=== PATIENT | male | born 1940 | race Caucasian/White ===

== ENCOUNTER → 2017-04-22 08:35 | Outpatient (CLI) | payer MEDICARE, SELFPAY ==
[2017-04-22 10:57] LABS: ALB/GLOB Ratio 0.9 RATIO (0.9-2.4); AST(SGOT) 58 U/L (15-37); Alanine Aminotransfer ALT/SGPT 67 U/L (16-61); Albumin, Serum 3.7 g/dL (3.2-5.0); Alkaline Phosphatase 90 U/L (45-117); Anion Gap 10 (5-15); BUN 20 mg/dL (7-18); BUN/Creat Ratio 14.6 RATIO (10-20); Calcium,Total 8.7 mg/dL (8.5-10.1); Chloride 101 mmol/L (98-107); Cholesterol 187 mg/dL (200); Creatinine, Serum 1.37 mg/dL (0.70-1.30); EST Glomerular Filtration Rate 54 mL/min (>60); Est Glom Filt Rate - Afr Amer 65 mL/min (>60); GGTP 158 U/L (15-85); Globulin 3.9 g/dL (2.2-4.2); Glucose 177 mg/dL (74-106); High Density Lipoprotein 32 mg/dL; Potassium 4.2 mmol/L (3.5-5.1); Protein, Total 7.6 g/dL (6.4-8.2); Sodium Level 136 mmol/L (136-145); Triglycerides 452 mg/dL
== END ==
PROVIDERS: Family Provider Family Medicine; PCP Family Medicine; Visit Provider Family Medicine
DX: E11.65 Type 2 diabetes mellitus with hyperglycemia (principal); R74.0 Nonspecific elevation of levels of transaminase and lactic acid dehydrogenase [LDH]
CPT/HCPCS: 36415; 80053; 80061; 82977

== ENCOUNTER → 2017-10-30 08:20 | Outpatient (CLI) | payer MEDICARE, SELFPAY ==
[2017-10-30 10:49] LABS: AST(SGOT) 86 U/L (15-37); Alanine Aminotransfer ALT/SGPT 89 U/L (16-61); Alkaline Phosphatase 92 U/L (45-117); Anion Gap 11 (5-15); BUN 16 mg/dL (7-18); BUN/Creat Ratio 11.8 RATIO (10-20); Chloride 104 mmol/L (98-107); Cholesterol 203 mg/dL (200); Creatinine, Serum 1.36 mg/dL (0.70-1.30); EST Glomerular Filtration Rate 54 mL/min (>60); Est Glom Filt Rate - Afr Amer 66 mL/min (>60); Globulin 4.2 g/dL (2.2-4.2); Glucose 122 mg/dL (74-106); High Density Lipoprotein 35 mg/dL; Potassium 4.2 mmol/L (3.5-5.1); Protein, Total 8.2 g/dL (6.4-8.2); Sodium Level 141 mmol/L (136-145); Thyroid Stim Hormone (TSH) 1.79 uIU/mL (0.358-3.74); Triglycerides 482 mg/dL
== END ==
PROVIDERS: Family Provider Family Medicine; PCP Family Medicine; Visit Provider Family Medicine
DX: E11.65 Type 2 diabetes mellitus with hyperglycemia (principal)
CPT/HCPCS: 36415; 80053; 80061; 84443

== ENCOUNTER → 2018-01-28 07:31 | Outpatient (CLI) | payer MEDICARE, SELFPAY ==
[2018-01-28 11:34] LABS: AST(SGOT) 85 U/L (15-37); Alanine Aminotransfer ALT/SGPT 90 U/L (16-61); Albumin, Serum 3.8 g/dL (3.2-5.0); Alkaline Phosphatase 92 U/L (45-117); Anion Gap 7 (5-15); BUN 23 mg/dL (7-18); BUN/Creat Ratio 17.3 RATIO (10-20); Calcium,Total 8.5 mg/dL (8.5-10.1); Chloride 105 mmol/L (98-107); Cholesterol 113 mg/dL (200); Creatinine, Serum 1.33 mg/dL (0.70-1.30); EST Glomerular Filtration Rate 56 mL/min (>60); Est Glom Filt Rate - Afr Amer 67 mL/min (>60); Globulin 3.8 g/dL (2.2-4.2); Glucose 138 mg/dL (74-106); High Density Lipoprotein 32 mg/dL; Potassium 4.3 mmol/L (3.5-5.1); Protein, Total 7.6 g/dL (6.4-8.2); Sodium Level 140 mmol/L (136-145); Triglycerides 401 mg/dL
== END ==
PROVIDERS: Family Provider Family Medicine; PCP Family Medicine; Referring Provider Family Medicine; Visit Provider Family Medicine
DX: E78.5 Hyperlipidemia, unspecified (principal); R74.0 Nonspecific elevation of levels of transaminase and lactic acid dehydrogenase [LDH]
CPT/HCPCS: 36415; 80053; 80061

== ENCOUNTER → 2018-08-07 07:14 | Outpatient (CLI) | payer MEDICARE, SELFPAY ==
[2018-08-07 10:18] LABS: AST(SGOT) 84 U/L (15-37); Alanine Aminotransfer ALT/SGPT 101 U/L (16-61); Albumin, Serum 3.8 g/dL (3.2-5.0); Alkaline Phosphatase 98 U/L (45-117); Anion Gap 5 (5-15); BUN 21 mg/dL (7-18); BUN/Creat Ratio 14.7 RATIO (10-20); Calcium,Total 8.5 mg/dL (8.5-10.1); Chloride 107 mmol/L (98-107); Cholesterol 121 mg/dL (200); Creatinine, Serum 1.43 mg/dL (0.70-1.30); EST Glomerular Filtration Rate 51 mL/min (>60); Est Glom Filt Rate - Afr Amer 62 mL/min (>60); Globulin 3.9 g/dL (2.2-4.2); Glucose 113 mg/dL (74-106); High Density Lipoprotein 34 mg/dL; Potassium 3.8 mmol/L (3.5-5.1); Protein, Total 7.7 g/dL (6.4-8.2); Sodium Level 138 mmol/L (136-145); Triglycerides 381 mg/dL; Very Low Density Lipoprotein 76 mg/dL (5-40)
== END ==
PROVIDERS: Family Provider Family Medicine; PCP Family Medicine; Referring Provider Family Medicine; Visit Provider Family Medicine
DX: E11.65 Type 2 diabetes mellitus with hyperglycemia (principal)
CPT/HCPCS: 36415; 80053; 80061

== ENCOUNTER → 2018-11-27 14:26 | Outpatient (CLI) | payer MEDICARE, SELFPAY ==
[2018-11-27 16:39] LABS: ALB/GLOB Ratio 1.1 RATIO (0.9-2.4); AST(SGOT) 92 U/L (15-37); Alanine Aminotransfer ALT/SGPT 88 U/L (16-61); Alkaline Phosphatase 86 U/L (45-117); Anion Gap 6 (5-15); BUN 20 mg/dL (7-18); BUN/Creat Ratio 14.6 RATIO (10-20); Calcium,Total 8.8 mg/dL (8.5-10.1); Chloride 108 mmol/L (98-107); Creatinine, Serum 1.37 mg/dL (0.70-1.30); EST Glomerular Filtration Rate 54 mL/min (>60); Est Glom Filt Rate - Afr Amer 65 mL/min (>60); Globulin 3.6 g/dL (2.2-4.2); Glucose 83 mg/dL (74-106); Potassium 4.3 mmol/L (3.5-5.1); Protein, Total 7.6 g/dL (6.4-8.2); Sodium Level 141 mmol/L (136-145)
== END ==
PROVIDERS: Family Provider Family Medicine; PCP Family Medicine; Referring Provider Family Medicine; Visit Provider Family Medicine
DX: E11.65 Type 2 diabetes mellitus with hyperglycemia (principal)
CPT/HCPCS: 36415; 80053

== ENCOUNTER → 2019-03-16 08:42 | Outpatient (CLI) | payer MEDICARE, SELFPAY ==
--- NOTE | 2019-03-16 08:46 | US_ITS ---
STUDY: ABDOMINAL ULTRASOUND - RIGHT UPPER QUADRANT REASON FOR VISIT: Male, 79 years old ABN LABS TECHNIQUE: Ultrasound evaluation of the right upper quadrant was performed with real-time and static adrian-scale imaging. TECHNICAL QUALITY: Limited. Examination limited by bowel gas. COMPARISON: None. FINDINGS: Liver: The liver is mildly enlarged and measures 19.2 cm. There is increased echogenicity consistent with fatty infiltration. The bile ducts are within normal limits. There is hepatic color flow. The direction of portal flow is hepatopetal. There is no demonstrated mass lesion. Gallbladder: Normal distended gallbladder. The gallbladder wall measures 2.6 mm. There is a negative sonographic Finney''s sign. There is no pericholecystic fluid. There are no gallstones. Common Bile Duct (C.B.D.): The common bile duct measures 3.7 mm. Pancreas: There is nonvisualization of the pancreas due to overlying bowel gas. Right Kidney: Normal size of the right kidney. The right kidney measures 11 cm x 4.6 cm x 6.6 cm. Normal renal cortex. The right cortex measures 1.9 cm. There is no demonstrated renal mass or cyst. There is no right hydronephrosis. US/Abdomen Limited IMPRESSION: Hepatomegaly and fatty infiltration of the liver. Electronically Signed: Cristiano Calvillo, at 14:24 EST , Service support ,
== END ==
PROVIDERS: Family Provider Family Medicine; PCP Family Medicine; Referring Provider Family Medicine; Visit Provider Family Medicine
DX: R74.0 Nonspecific elevation of levels of transaminase and lactic acid dehydrogenase [LDH] (principal)
CPT/HCPCS: 76705

== ENCOUNTER → 2020-01-07 09:58 | Outpatient (CLI) | payer MEDICARE, SELFPAY ==
[2020-01-07 13:13] LABS: ALB/GLOB Ratio 0.8 RATIO (0.9-2.4); AST(SGOT) 121 U/L (15-37); Alanine Aminotransfer ALT/SGPT 102 U/L (16-61); Albumin, Serum 3.6 g/dL (3.2-5.0); Alkaline Phosphatase 115 U/L (45-117); Anion Gap 7 (5-15); BUN 26 mg/dL (7-18); BUN/Creat Ratio 16.8 RATIO (10-20); Calcium,Total 8.5 mg/dL (8.5-10.1); Chloride 108 mmol/L (98-107); Creatinine, Serum 1.55 mg/dL (0.70-1.30); EST Glomerular Filtration Rate 46 mL/min (>60); Est Glom Filt Rate - Afr Amer 56 mL/min (>60); Globulin 4.3 g/dL (2.2-4.2); Glucose 154 mg/dL (74-106); Potassium 3.9 mmol/L (3.5-5.1); Protein, Total 7.9 g/dL (6.4-8.2); Sodium Level 138 mmol/L (136-145); Thyroid Stim Hormone (TSH) 2.08 uIU/mL (0.358-3.74)
== END ==
PROVIDERS: PCP Family Medicine; Referring Provider Family Medicine; Visit Provider Family Medicine
DX: E11.65 Type 2 diabetes mellitus with hyperglycemia (principal)
CPT/HCPCS: 36415; 80053; 84443

== ENCOUNTER → 2020-04-21 09:22 | Outpatient (CLI) | payer MEDICARE, SELFPAY ==
[2020-04-21 10:45] LABS: ALB/GLOB Ratio 0.9 RATIO (0.9-2.4); AST(SGOT) 114 U/L (15-37); Alanine Aminotransfer ALT/SGPT 91 U/L (16-61); Albumin, Serum 3.8 g/dL (3.2-5.0); Alkaline Phosphatase 113 U/L (45-117); Anion Gap 6 (5-15); BUN 22 mg/dL (7-18); BUN/Creat Ratio 13.1 RATIO (10-20); Calcium,Total 8.8 mg/dL (8.5-10.1); Chloride 104 mmol/L (98-107); Creatinine, Serum 1.68 mg/dL (0.70-1.30); EST Glomerular Filtration Rate 42 mL/min (>60); Est Glom Filt Rate - Afr Amer 51 mL/min (>60); Globulin 4.4 g/dL (2.2-4.2); Glucose 221 mg/dL (74-106); Potassium 4.7 mmol/L (3.5-5.1); Protein, Total 8.2 g/dL (6.4-8.2); Sodium Level 136 mmol/L (136-145)
== END ==
PROVIDERS: PCP Family Medicine; Referring Provider Family Medicine; Visit Provider Family Medicine
DX: E11.65 Type 2 diabetes mellitus with hyperglycemia (principal)
CPT/HCPCS: 36415; 80053

== ENCOUNTER 2020-08-13 06:57 | Inpatient (IN) | payer MEDICARE, SELFPAY ==
[2020-08-13] VITALS (11 sets, daily range): BP systolic 130–151; BP diastolic 52–67; PULSE 61–91; RESP 14–18; TEMP 37.1–37.7; O2SAT 94–96; BMI 28.0; BMI 27.5; BMI 27.4
--- NOTE | 2020-08-13 07:17 | RAD_ITS ---
STUDY: X-RAY CHEST REASON FOR EXAM: Male, 80 years old. cough TECHNIQUE: Single AP portable view of the chest. COMPARISON: None. FINDINGS: Poor inspiration with some bibasilar atelectasis. Elevated right hemidiaphragm. Normal size heart. Normal mediastinum and [place]. Normal visualized pulmonary arteries. Normal visualized aortic arch and descending thoracic aorta. Normal visualized thoracic spine. Normal visualized ribs, clavicles, and shoulders. There is no demonstrated abnormality of the visualized soft tissue structures of the upper abdomen. RAD/Chest 1 View (Portable) IMPRESSION: Poor inspiration with some bibasilar atelectasis. Electronically Signed: Danny Sorensen MD at 8:19 EDT Tel , Service support ,
--- NOTE | 2020-08-13 07:18 | EKG12_ITS ---
Test Reason : SOB Blood Pressure : / mmHG Vent. Rate : 081 BPM Atrial Rate : 081 BPM P-R Int : 200 ms QRS Dur : 100 ms QT Int : 382 ms P-R-T Axes : 011 -38 035 degrees QTc Int : 443 ms Normal sinus rhythm Left axis deviation Inferior infarct , age undetermined Anterior infarct , age undetermined Abnormal ECG Confirmed by MICHAEL LECHUGA, ANNABELLE ([id number]), design editor FAVIAN WAGNER ([id number]) on 08/15/2020 11:10:24 A M Referred By: CHUY Confirmed By:CARLITOS RODRIGUEZ MD
[2020-08-13 07:25] LABS: Absolute Lymphocyte Count 0.72 X10^3/uL (0.83-4.51); Absolute Neutrophil Count 4.1 X10^3/uL (2.0-7.7); Basophil# 0.02 X10^3/uL; Basophil% 0.4 % (0-1); Hematocrit 41.4 % (40-54); Hemoglobin 14.1 g/dL (13.0-16.5); Lymphocyte # 0.72 X10^3/ul (0.83-4.51); Lymphocyte % 13.4 % (19-41); Mean Corp Hgb Conc 34.1 g/dL (32-36); Mean Corpuscular Hgb 30.4 pg (27.0-32.0); Mean Corpuscular Volume 89.2 fL (80-94); Mean Platelet Vol. 11.3 fl (6.2-12.0); Monocyte# 0.52 X10^3/uL; Monocyte% 9.7 % (0-10); NRBC Flagged by Analyzer 0 % (0-5); Neutrophil # 4.05 X10^3/uL (2.7-7.7); Neutrophil % 75.6 % (47-70); POSITIVE COUNT YES; Platelet Count 69 K/mm3 (150-450); RBC Distribution Width CV 12.5 % (11.6-14.6); RBC Distribution Width SD 41.1 fl (35.1-43.9); Red Blood Count 4.64 M/mm3 (4.6-6.2); White Blood Count 5.4 K/mm3 (4.4-11.0)
[2020-08-13] MEDS: 0.9% Normal Saline 1,000 ML 150 ML IV (07:28)
--- NOTE | 2020-08-13 07:30 | EDS_ITS ---
HPI History of Present Illness Chief Complaint: General Illness Narrative Narrative: 3 to 4 days of cough fever body aches Patient reports persistently harsh cough trouble eating and drinking, no coronavirus exposures no vaccination no cardiopulmonary disease hypertension diabetes generally well controlled normal urinary bowel habits [facility] Medical History (Updated 08/13/20 @ 07:02 by Luisana Lozoya RN) Congestive heart failure (CHF) Diabetes Hypertension Home Medications aspirin 81 mg PO DAILY 08/13/20 [History Last Taken Unknown] dapagliflozin [Farxiga] 5 mg PO DAILY 08/13/20 [History Last Taken Unknown] hydrochlorothiazide 12.5 mg PO DAILY 08/13/20 [History Last Taken Unknown] losartan 100 mg PO DAILY 08/13/20 [History Last Taken Unknown] metoprolol tartrate 50 mg PO BID 08/13/20 [History Last Taken Unknown] pitavastatin calcium [Livalo] 2 mg PO DAILY 08/13/20 [History Last Taken Unknown] saxagliptin-metformin [Kombiglyze XR] 1 tab PO DAILY 08/13/20 [History Last Taken Unknown] Allergy/AdvReac Type Severity Reaction Status Date / Time No Known Allergies Allergy Verified 08/13/20 07:00 Social History Smoking Status: Never smoker ROS ROS ED ROS Narrative Fever cough shortness of breath generalized weakness Constitutional Constitutional ED: Reports chills, fever(s), subjective, sweats and other; Denies weight loss Eyes Eyes: Denies blurry vision or change in vision ENT ENT ED: Denies ear pain Cardiovascular Cardiovascular: Denies chest pain or palpitations Respiratory/Chest Respiratory/Chest: Reports cough and dyspnea Gastrointestinal Gastrointestinal: Denies abdominal pain, nausea or vomiting Genitourinary Genitourinary ED: Denies dysuria or hematuria Musculoskeletal Musculoskeletal: Denies arthralgias or myalgias Integumentary Reports rash; Denies abscess Neurologic Neurologic: Denies weakness Psychiatric Psychiatric: Denies anxiety or depression Endocrine Endocrinology: Denies polydipsia or polyuria Allergic/Immunologic Allergic/Immunologic ED: Denies urticaria EXAM Physical Exam Narrative Exam Narrative: Patient is awake and alert his pulse ox is 90% on room air HEENT exam is dry mucous membranes neck supple lungs rhonchi in all areas good excursion abdomen soft nontender awake alert moving all four extremities see below Const Vital Signs: 08/13/20 06:58 08/13/20 07:45 Temperature 99.5 F H Temperature Source Oral Pulse Rate 87 74 Respiratory Rate 14 16 Blood Pressure 150/67 H 133/61 H Blood Pressure Mean 94 85 Pulse Ox 94 94 Oxygen Delivery Method Room Air Room Air Positive well developed General Appearance ED: well developed HEENT Reports normocephalic Negative for trauma Eyes EOMs intact bilaterally Neck supple Chest Wall inspection of chest normal Resp normal respiratory effort Cardio regular rate GI non-tender and non-distended Back/Spine Back/Spine Narrative: unremarkable Extremity normal to inspection Neuro oriented x3 and CN's II-XII intact bilaterally Sensorium / Orientation: alert Psych mental status grossly normal Skin no rashes or lesions noted MDM MDM MDM Narrative Medical decision making narrative: Given all the above ED evaluation screening labs x-ray coronavirus screen Coronavirus screen positive, creatinine is elevated from baseline 1.3-1.8, IV fluids given he is on 2 L of oxygen his pulse ox is now 95% he is in no cardiopulmonary distress, other screening labs are generally unremarkable 1 view chest x-ray to my review shows potential infiltrate right upper area, radiology feels the patient has more bibasilar atelectasis see those reports, EKG shows a sinus rhythm rate 81 nothing acute poor R wave progression lack of R waves in the anterior leads no old EKG for comparison, again patient has no history of NH PE or DVT given all the above we spoke with the hospitalist he'll be done admit him for further management discussed with the patient he understands Admit stable Final impression coronavirus 19 infection hypoxemia dehydration [facility] Lab Data Labs: Laboratory Results - last 24 hr 08/13/20 08/13/20 08/13/20 07:00 07:00 07:00 WBC 5.4 RBC 4.64 Hgb 14.1 Hct 41.4 MCV 89.2 MCH 30.4 MCHC 34.1 RDW Std Deviation 41.1 RDW Coeff of Maite 12.5 Plt Count 69 L MPV 11.3 Immature Gran % (Auto) 0.900 Neut % (Auto) 75.6 H Lymph % (Auto) 13.4 L [place] % (Auto) 9.7 Eos % (Auto) 0.0 Baso % (Auto) 0.4 Absolute Neuts (auto) 4.1 Absolute Lymphs (auto) 0.72 L Nucleated RBC % 0 Differential Comment SCANNED Platelet Estimate MOD DEC Sodium 132 L Potassium 4.4 Chloride 101 Carbon Dioxide 23.0 Anion Gap 8 BUN 31 H Creatinine 1.84 H Estim Creat Clear Calc 34.16 Est GFR (MDRD) Af Amer 46 L Est GFR (MDRD) Non-Af 38 L BUN/Creatinine Ratio 16.8 Glucose 221 H Calcium 8.3 L Troponin I < 0.015 B-Natriuretic Peptide 29.1 Radiography Diagnostic Testing: Radiology Impression Chest X-Ray 08/13/20 07:17 IMPRESSION: Poor inspiration with some bibasilar atelectasis. Electronically Signed: Danny Sorensen MD at 8:19 EDT Tel , Service support , Discharge Plan Triage Chief Complaint: General Illness ED Provider: Maggie Barraza Dx/Rx/DC Orders Prescriptions: No Action metoprolol tartrate 50 mg tablet 50 mg PO BID RF: 0 Kombiglyze XR 5-1,000 mg tablet, ER multiphase 24 hr 1 tab PO DAILY RF: 0 Farxiga 5 mg tablet 5 mg PO DAILY RF: 0 losartan 100 mg tablet 100 mg PO DAILY RF: 0 hydrochlorothiazide 12.5 mg tablet 12.5 mg PO DAILY RF: 0 Livalo 2 mg tablet 2 mg PO DAILY RF: 0 aspirin 81 mg Tablet 81 mg PO DAILY RF: 0 Primary Care Provider: Matthew Conroy
[2020-08-13 07:36] LABS: Anion Gap 8 (5-15); BUN 31 mg/dL (7-18); BUN/Creat Ratio 16.8 RATIO (10-20); Calcium,Total 8.3 mg/dL (8.5-10.1); Chloride 101 mmol/L (98-107); Creatinine, Serum 1.84 mg/dL (0.70-1.30); EST Glomerular Filtration Rate 38 mL/min (>60); Est Glom Filt Rate - Afr Amer 46 mL/min (>60); Estimated Creatinine Clearance 34.16 ml/min; Glucose 221 mg/dL (74-106); Potassium 4.4 mmol/L (3.5-5.1); Sodium Level 132 mmol/L (136-145)
[2020-08-13 07:39] LABS: Differential Indicated SCAN CRITERIA MET
[2020-08-13 08:03] LABS: BNP,B-Type NATRIURETIC PEPTIDE 29.1 pg/mL (0-100)
[2020-08-13 08:10] LABS: Differential Comment SCANNED; Platelet Estimate MOD DEC (ADEQ)
--- NOTE | 2020-08-13 08:39 | PCM.HP.STD ---
HPI - General General Date of Admission: 08/13/20 HPI Narrative YOLANDA MEDRANO, is a 80 M with history of hypertension and diabetes mellitus came to ER with fever body aches and mild abdominal pain. Patient states his symptom complex started about a week ago with generalized weakness, tiredness body aches and pain. Then he started having diarrhea about 5 times loose, black in color. He denies abdominal pain to me. He had colonoscopy about a year ago and was negative as per the patient. Patient also has fever, chills for last 3 days. Mild cough predominantly dry and shortness of breath on exertion for 3 to 4 days. In ED, temperature 99.5, pulse ox 94% on room air. Heart rate and blood pressure controlled. Chest x-ray individually reviewed and shows bibasilar atelectasis with some groundglass appearance in the lateral field of both lungs although not reported. EKG sinus rhythm with LAD at 81 bpm. QTc 443 ms. Previous EKG in March 2008 normal sinus rhythm at 64 beats respiratory. Abnormal labs reviewed. Although not initially ordered By ER physician, lactic acidosis came 2.5, D-dimer 0.95, procalcitonin 0.27. Inflammatory markers LDH, fibrinogen and CRP elevated. BUN/creatinine elevated. [facility] Medical History (Updated 08/13/20 @ 11:[address] Rodrigo Reilly MD) CKD (chronic kidney disease) stage 3, GFR 30-59 ml/min Congestive heart failure (CHF) Diabetes Hypertension Home Medications aspirin 81 mg PO DAILY 08/13/20 [History Last Taken Unknown] dapagliflozin [Farxiga] 5 mg PO DAILY 08/13/20 [History Last Taken Unknown] hydrochlorothiazide 12.5 mg PO DAILY 08/13/20 [History Last Taken Unknown] insulin aspart U-100 50 unit SUBCUT TIDCM 08/13/20 [History Last Taken 08/12/20] insulin detemir U-100 [Levemir Flexpen] 65 unit SUBCUT BID 08/13/20 [History Last Taken 08/12/20] losartan 100 mg PO DAILY 08/13/20 [History Last Taken Unknown] metoprolol tartrate 50 mg PO BID 08/13/20 [History Last Taken Unknown] pitavastatin calcium [Livalo] 2 mg PO DAILY 08/13/20 [History Last Taken Unknown] saxagliptin-metformin [Kombiglyze XR] 1 tab PO DAILY 08/13/20 [History Last Taken Unknown] Allergy/AdvReac Type Severity Reaction Status Date / Time No Known Allergies Allergy Verified 08/13/20 07:00 Family History (Updated 08/13/20 @ 10:[address] Rodrigo Reilly MD) Brother Colon cancer Social History Smoking Status: Never smoker ROS ROS Narrative Constitutional: Reports fatigue and weakness. Generalized tiredness. Feels thirsty. HEENT: Reports systems reviewed and no addt'l complaints, except as documented Respiratory/Chest: Denies chest pain. shortness of breath with exertion and at rest Gastrointestinal: No abdominal pain. Diarrhea as mentioned in HPI. Denies coffee ground emesis, hematemesis or vomiting Genitourinary: Decreased in urine output. Yellow urine. Denies burning urination Musculoskeletal: Reports joint pain and limited range of motion Neurologic: Denies seizure-like activity skin: No ulcer. No rash Endocrinology: Diabetes mellitus type 2. Reports systems reviewed and no addt'l complaints, except as documented Hematologic/Lymphatic: Reports systems reviewed and no addt'l complaints, except as documented Rest 12 ROS are negative except as mentioned in HPI Vital Signs Vital Signs Vital Signs: 08/13/20 06:58 08/13/20 07:45 Temperature 99.5 F H Temperature Source Oral Pulse Rate 87 74 Respiratory Rate 14 16 Blood Pressure 150/67 H 133/61 H Blood Pressure Mean 94 85 Pulse Ox 94 94 Oxygen Delivery Method Room Air Room Air Weight Weight: 195 lb 8.8 oz Body Mass Index (BMI) 28.0 Physical Exam Narrative Physical exam General: Alert, Oriented x3, Cooperative HEENT: Atraumatic, PERRLA, EOMI, Normocephalic Oral: No Gingival or Mucosal Lesions/ Ulcerations Neck: Supple, No JVD, Negative Carotid Bruits Lungs: Air entry diminished in bilateral lung bases. Dyspnea on rest. No crepitation/rhonchi. Cardiovascular: Regular rate, Regular Rhythm, Normal S1, Normal S2, No murmurs Abdomen: Bowel Sounds Present, Soft, Non Tender, Non-Distended : No renal angle tenderness. No suprapubic tenderness. Extremities: No edema, Capillary Refill Less than 3 Seconds Skin: Venous dermatitis changes. No open ulcer. Musculoskeletal: No Tenderness to Palpation of Joints or Extremities Neurological: Cranial nerves II-XII grossly intact, Deep Tendon Reflexes 2+/4 and Symmetrical, Neuro grossly intact Psych/Mental Status: Normal Affect, Appropriate. Results Lab / Micro Data Result Diagrams: 08/13/20 07:00 08/13/20 07:00 Labs: Laboratory Results - last 24 hr 08/13/20 08/13/20 08/13/20 07:00 07:00 07:00 WBC 5.4 RBC 4.64 Hgb 14.1 Hct 41.4 MCV 89.2 MCH 30.4 MCHC 34.1 RDW Std Deviation 41.1 RDW Coeff of Maite 12.5 Plt Count 69 L MPV 11.3 Immature Gran % (Auto) 0.900 Neut % (Auto) 75.6 H Lymph % (Auto) 13.4 L [place] % (Auto) 9.7 Eos % (Auto) 0.0 Baso % (Auto) 0.4 Absolute Neuts (auto) 4.1 Absolute Lymphs (auto) 0.72 L Nucleated RBC % 0 Differential Comment SCANNED Platelet Estimate MOD DEC Sodium 132 L Potassium 4.4 Chloride 101 Carbon Dioxide 23.0 Anion Gap 8 BUN 31 H Creatinine 1.84 H Estim Creat Clear Calc 34.16 Est GFR (MDRD) Af Amer 46 L Est GFR (MDRD) Non-Af 38 L BUN/Creatinine Ratio 16.8 Glucose 221 H Calcium 8.3 L Troponin I < 0.015 B-Natriuretic Peptide 29.1 Micro: Microbiology 08/13/20 07:00 SARS-CoV-2 Antigen (Rapid) - Final Mucosa - Nose SARS-CoV-2 (COVID 19) Radiology Impression Chest X-Ray 08/13/20 07:17 IMPRESSION: Poor inspiration with some bibasilar atelectasis. Electronically Signed: Danny Sorensen MD at 8:19 EDT Tel , Service support , Assessment & Plan Assessment/Plan (1) Pneumonia due to COVID-19 virus: (2) Severe sepsis with acute organ dysfunction: (3) [facility] (acute kidney injury): PLAN: YOLANDA MEDRANO, is a 80 M with history of hypertension and diabetes mellitus came to ER with fever, chills shortness of breath and diarrhea Chest x-ray individually reviewed and shows bibasilar atelectasis with some groundglass appearance in the lateral field of both lungs although not reported. EKG sinus rhythm with LAD at 81 bpm. QTc 443 ms. 1. Severe sepsis secondary to bilateral COVID-19 pneumonia: Patient is being admitted to monitored bed. IV fluid LR 30 mils per KG as per severe sepsis protocol. Blood pressure is good 145/58. Monitor for fluid overload and oxygen saturation. Repeat lactic acid. Started on remdesivir and Decadron. ID consult. If oxygen saturation deteriorates we will consult licensed prosthetist/orthotist. 2. Acute gastroenteritis secondary to COVID-19: Enteric pathology panel and stool for occult blood ordered. IV fluid resuscitation 3. 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 Monitor kidney function and electrolytes. If kidney function does not improve will do kidney ultrasound and consult nephrology. 4. Diabetes mellitus type 2: Accu-Chek before meals and at bedtime continue sliding scale 5. Hypertension: Blood pressure is good. In medical history CHF is mentioned but patient denies history of coronary artery disease or CHF. No chest pain. 6 D-dimer elevated. Started on Lovenox 30 g subcu daily based on creatinine clearance and if stool for occult blood negative. Patient also has thrombocytopenia probably due to severe sepsis. Bilateral venous Doppler and VQ scan ordered. Patient does not have prior history of DVT or PE. Modified Wells criteria for PE is 0. Age-adjusted D-dimer states low risk. DVT prophylaxis: BiLlateral SCDs. Lovenox as mentioned above Living will/advanced directive/end of life care: Patient does not have living will or advanced directive. Patient's and daughter are power of insurance defense attorney for health. After discussion of benefits/risks procedures involved with full code, DNR CC arrest and DNR CC, the patient opted for full code and okay with intubation Patient does want artificial life support including intubation, tube feed, ventilator and/chest compression, central venous catheter, vasopressor and DC shock if needed Total time spent in [id number] encounter in discussion of advanced directive 16 minutes. Charges/Coding Visit Charges Inpatient E&M: 55897 Init Hosp L3 Procedures Hospitalists Procedures: 84923 Advncd Care Plan 30 Min
[2020-08-13 09:15] LABS: LDH 331 U/L (87-241)
[2020-08-13] MEDS: dexAMETHasone 10 MG/ML Vial 6 MG IV (09:17)
[2020-08-13 09:21] LABS: AST(SGOT) 94 U/L (15-37); Alanine Aminotransfer ALT/SGPT 73 U/L (16-61); Albumin, Serum 3.4 g/dL (3.2-5.0); Alkaline Phosphatase 100 U/L (45-117); Bilirubin, Direct 0.26 mg/dL (0.00-0.30); Globulin 4.4 g/dL (2.2-4.2); Protein, Total 7.8 g/dL (6.4-8.2)
[2020-08-13 09:42] LABS: CPK Total, Creatine Kinase 71 U/L (39-308)
[2020-08-13 09:43] LABS: International Normalized Ratio 1.1; Prothrombin Time (Protime)PT. 13.9 SECONDS (11.7-14.9)
[2020-08-13 09:45] LABS: Fibrinogen 571 mg/dl (203-444)
[2020-08-13 09:54] LABS: D-Dimer Quantitative (DVT/PE) 0.95 FEU/ug/m (0.27-0.49)
[2020-08-13 10:03] LABS: Lactic Acid 2.5 mmol/L (0.4-1.9)
[2020-08-13 10:31] LABS: Procalcitonin 0.27 ng/mL (0.00-0.09)
--- NOTE | 2020-08-13 11:18 | VDLE_ITS ---
Reason For Study: SOB RIGHT LEFT GSV is normal. GSV is normal. CFV is compressible, spontaneous, phasic, CFV is compressible, spontaneous, phasic, competent and demonstrates normal competent, and demonstrates normal augmentation. augmentation. FV is compressible, spontaneous, phasic, FV is compressible, spontaneous, phasic, competent and demonstrates normal competent and demonstrates normal augmentation. augmentation. POP V is compressible, spontaneous, phasic, POP V is compressible, spontaneous, phasic, competent and demonstrates normal competent and demonstrates normal augmentation. augmentation. T/P Trunk is compressible. T/P Trunk is compressible. PTV is compressible. PTV is compressible. RT PerV is compressible. LT PerV is compressible. Procedure This is a venous duplex using B-mode, color flow and spectral Doppler. The exam was abbreviated due to the COVID 19 protocol. A preliminary report was called and/or faxed to [facility]. VL/Venous Duplex US - Pradip Extrem Interpretation Summary Deep veins of the lower extremities are bilaterally patent and compressible seg mentally. There is no evidence of deep vein thrombosis on either side. Valvular competence appears in tact within the proximal deep venous systems bilaterally. The great saphenous veins appear bila terally patent and compressible segmentally. Ordering Physician: Rodrigo Reilly Referring Physician: ELIZABETH LIANG Performed By: Celina Varela, RDCS, RVT
[2020-08-13] MEDS: Lactated Ringers 1,000 ML 999 ML IV ×2 (11:22→12:47)
[2020-08-13] MEDS: 0.9% Saline Lock 10 ML Syringe IV ×2 (11:32→14:51)
--- NOTE | 2020-08-13 12:15 | CASEMGMT ---
RN CM CROZER OPERATOR ANOOP placed call to pt's room for initial transition planning/care coordination assessment. LARS DAVALOS introduced self and role at [facility].? Pt voices understanding and consents to assessment at this time.? Pt is A/O at this time and answers all questions appropriately.?? Care providers, pharmacy, and demographics verified/updated at this time. PCP: Dr Conroy Specialists: none Preferred Pharmacy: [facility] [place] Insurance: [employer] Prescription Benefit:? Yes Living Will/HPOA:? Has not done LW, but has HPOA, who is his , Elina LNOK: , Elina. 3 children: Daughter, Vignesh. Also has a son who lives in [place] and another dtr who lives near [place] Living Arrangements: Lives w/his in one-story home w/basement. 1 step to enter thru the garage. States he does go to the basement on occasion but states does okay with the stairs. 2 bathrooms in the home. Discussed COVID isolation precautions and encouraged pt/ to use separate bathrooms and bedrooms. Pt states his daughter can get groceries/meds/supplies as needed. Transportation: Pt states drives self and states no transportation concerns at this time.? also drives DME: ?States has the following DME:? functioning glucometer w/supplies and thermometer. Ambulates independently w/no DME. Encouraged to get a pulse ox and informed can get at a drug store, [employer], or [employer]. Pt does not have home O2. Reviewed local DME co's consistent w/pt's medical needs and insurance. Pt states does not have a preference. Made aware [facility] [place] and pt states [employer]. ?Pt states no need for further DME at this time.? HHC/SNF: No history of either and no needs identified. Pt wishes to return home and states has no concerns with going home at time of discharge.? CM to follow for home oxygen needs and any further discharge planning/needs.? Pt voices no further concerns/needs at this time.? Advised pt to ask for CM if any further questions/concerns/needs arise.? Voices understanding. PLAN: ?Home w/family support and discharge plans in place. Green sheet placed on chart w/instructions for Home O2 set up if pt qualifies for O2 @ discharge. Melissa BSN RN CM
[2020-08-13] MEDS: Enoxaparin 30 MG/0.3 ML Syringe SC (12:53)
[2020-08-13] MEDS: guaiFENesin/D-Methorphan TAB.SR.12H 1 TABLET PO ×2 (12:53→21:06)
[2020-08-13] MEDS: Insulin Lispro 100 UNIT/ML INSULN.PEN 10 UNIT SC ×2 (12:57→17:44)
[2020-08-13 13:42] LABS: Reflex Lactate? Y
--- NOTE | 2020-08-13 13:58 | NT.THERAPY_ITS ---
Medical Nutrition Therapy - History Nutrition Services has been consulted to:: Manage nutrient details of diet order Current diet/nutrition support order:: 1800 calorie; consistent carbohydrate; cardiac diet. 120ml glucerna shake TID w/ medpass - Anthropometric Measurements Height:: 5 ft 10 in Weight:: 86.9 kg Body Mass Index (BMI):: 27.4 - Relevant Labs Relevant Labs:: Plt Count 69 K/mm3 (150-450) L 08/13/20 07:00 Neut % (Auto) 75.6 % (47-70) H 08/13/20 07:00 Lymph % (Auto) 13.4 % (19-41) L 08/13/20 07:00 Absolute Lymphs (auto) 0.72 X10^3/uL (0.83-4.51) L 08/13/20 07:00 Fibrinogen 571 mg/dl (203-444) H 08/13/20 09:05 D-Dimer Quant (PE/DVT) 0.95 FEU/ug/m (0.27-0.49) H* 08/13/20 09:05 Sodium 132 mmol/L (136-145) L 08/13/20 07:00 BUN 31 mg/dL (7-18) H 08/13/20 07:00 Creatinine 1.84 mg/dL (0.70-1.30) H 08/13/20 07:00 Est GFR (MDRD) Af Amer 46 mL/min (>60) L 08/13/20 07:00 Est GFR (MDRD) Non-Af 38 mL/min (>60) L 08/13/20 07:00 Glucose 221 mg/dL (74-106) H 08/13/20 07:00 Lactic Acid 2.5 mmol/L (0.4-1.9) H* 08/13/20 09:05 Calcium 8.3 mg/dL (8.5-10.1) L 08/13/20 07:00 AST 94 U/L (15-37) H 08/13/20 07:00 ALT 73 U/L (16-61) H 08/13/20 07:00 Lactate Dehydrogenase 331 U/L (87-241) H 08/13/20 07:00 C-React Prot Ext Range 60.70 mg/L (0.0-3.0) H 08/13/20 07:00 Globulin 4.4 g/dL (2.2-4.2) H 08/13/20 07:00 Procalcitonin 0.27 ng/mL (0.00-0.09) H 08/13/20 07:00 - Assessment Food and Nutrient Intake: PO to be established; will continue glucerna shake TID w/ medpass as ordered and offer additional ONS as needed once intake established. Calculated wt loss ~4-5% x past 7-10 days which is significant for malnutrition especially given poor intake meeting less than 50% estimated nutrition needs x past 7-10 days. - Nutrition Diagnosis: Clinical Problem Acute Disease or Injury Related Malnutrition Clinical Problem - Etiology: Severe protein-calorie malnutrition in the context of acute illness related to inflammation/infection Clinical Problem - Signs/Symptoms: as evidenced by ~4-5% wt loss and poor intake meeting less than 50% estimated nutrition needs x past 7-10 days. Status: Active Problem - Protein Calorie Malnutrition Evidence of Malnutrition Exists: Yes Severe Protein Calorie Malnutrition:: Acute Illness/Injury - Nutrition Intervention Nutrition Prescription: Estimated nutrition needs~8685-4959 kcal (23 kcal/Kg) and ~100-110 gm pro (1.2 gm pro/Kg) per day. Estimated fluid needs~2200ml/day (25 ml/Kg). - Food / Nutrient Delivery Interventions Summary of nutrition intervention:: Adjust diet order, Provide oral nutrition supplement Nutrition support ordered as / adjusted to:: Will liberalize diet to carb- controlled; no added salt in an effort to optimize intake at meals. Will continue 120ml glucerna shake TID w/ medpass and will add BID w/ meals as well for additional 550 calories and 25 gm protein per day if consumed. Nutrition education provided?: No - MNT Monitoring Active Nutrition Patient: Yes Nutrition Status: Requires Follow Up 3-5 Days
[2020-08-13 14:06] LABS: Bedside Glucose 242 mg/dL (70-110)
[2020-08-13] MEDS: Glucerna Shake 120 ML LIQUID PO ×2 (14:49→17:44)
[2020-08-13] MEDS: 0.9% Normal Saline 1,000 ML 60 ML IV (14:50)
[2020-08-13 15:06] LABS: Lactic Acid 3.3 mmol/L (0.4-1.9)
[2020-08-13] MEDS: Insulin Lispro 100 UNIT/ML INSULN.PEN SC ×2 (17:43→22:23)
[2020-08-13 17:50] LABS: Bedside Glucose 342 mg/dL (70-110)
[2020-08-13] MEDS: Metoprolol Tartrate 25 MG Tablet PO (21:06)
[2020-08-13 22:36] LABS: Bedside Glucose 242 mg/dL (70-110)
[2020-08-14] VITALS (15 sets, daily range): BP systolic 114–135; BP diastolic 46–61; PULSE 56–68; RESP 15–16; TEMP 36.2–36.4; O2SAT 91–97
[2020-08-14] MEDS: Insulin Lispro 100 UNIT/ML INSULN.PEN SC ×4 (07:08→22:12)
[2020-08-14 07:15] LABS: Bedside Glucose 188 mg/dL (70-110)
[2020-08-14 07:24] LABS: Absolute Neutrophil Count 2.5 X10^3/uL (2.0-7.7); Basophil# 0.01 X10^3/uL; Basophil% 0.3 % (0-1); Hematocrit 35.9 % (40-54); Hemoglobin 12.2 g/dL (13.0-16.5); Lymphocyte % 21.3 % (19-41); Mean Corpuscular Hgb 30.7 pg (27.0-32.0); Mean Corpuscular Volume 90.2 fL (80-94); Mean Platelet Vol. 10.8 fl (6.2-12.0); Monocyte# 0.44 X10^3/uL; Monocyte% 11.7 % (0-10); NRBC Flagged by Analyzer 0 % (0-5); Neutrophil # 2.46 X10^3/uL (2.7-7.7); Neutrophil % 65.6 % (47-70); POSITIVE COUNT YES; POSITIVE MORPHOLOGY YES; Platelet Count 59 K/mm3 (150-450); RBC Distribution Width CV 12.4 % (11.6-14.6); RBC Distribution Width SD 40.8 fl (35.1-43.9); Red Blood Count 3.98 M/mm3 (4.6-6.2); White Blood Count 3.8 K/mm3 (4.4-11.0)
[2020-08-14 07:30] LABS: Differential Indicated SCAN CRITERIA MET
[2020-08-14 07:48] LABS: Platelet Estimate MKD DEC (ADEQ); Reactive Lymphocyte RARE
[2020-08-14 07:49] LABS: ALB/GLOB Ratio 0.7 RATIO (0.9-2.4); AST(SGOT) 65 U/L (15-37); Alanine Aminotransfer ALT/SGPT 53 U/L (16-61); Albumin, Serum 2.8 g/dL (3.2-5.0); Alkaline Phosphatase 70 U/L (45-117); Anion Gap 8 (5-15); BUN 30 mg/dL (7-18); BUN/Creat Ratio 22.4 RATIO (10-20); Calcium,Total 8.1 mg/dL (8.5-10.1); Chloride 106 mmol/L (98-107); Creatinine, Serum 1.34 mg/dL (0.70-1.30); EST Glomerular Filtration Rate 55 mL/min (>60); Est Glom Filt Rate - Afr Amer 66 mL/min (>60); Estimated Creatinine Clearance 46.91 ml/min; Glucose 193 mg/dL (74-106); Potassium 4.4 mmol/L (3.5-5.1); Protein, Total 6.8 g/dL (6.4-8.2); Sodium Level 137 mmol/L (136-145)
[2020-08-14] MEDS: Metoprolol Tartrate 25 MG Tablet PO (08:33)
[2020-08-14] MEDS: Aspirin 81 MG TAB.CHEW PO (08:33)
[2020-08-14] MEDS: Glucerna Shake 120 ML LIQUID PO ×3 (08:33→17:29)
[2020-08-14] MEDS: guaiFENesin/D-Methorphan TAB.SR.12H 1 TABLET PO ×2 (08:33→22:15)
[2020-08-14] MEDS: dexAMETHasone 10 MG/ML Vial 6 MG IV (08:34)
[2020-08-14] MEDS: Enoxaparin 30 MG/0.3 ML Syringe SC (08:34)
[2020-08-14] MEDS: 0.9% Saline Lock 10 ML Syringe IV ×2 (08:35→10:40)
[2020-08-14] MEDS: Insulin Lispro 100 UNIT/ML INSULN.PEN 10 UNIT SC ×2 (08:37→12:39)
[2020-08-14 11:25] LABS: Bedside Glucose 306 mg/dL (70-110)
--- NOTE | 2020-08-14 14:26 | PCM.PN.HOSP ---
Subjective Subjective Has shortness of breath on exertion. Pulse ox drops to 91% on room air otherwise 95% on room air. Mild dry cough. Objective Data Objective Data Vital Signs: Vital Signs Temp Pulse Resp BP Pulse Ox 97.6 F L 64 16 114/49 L 96 08/14/20 11:19 08/14/20 11:43 08/14/20 11:19 08/14/20 11:19 08/14/20 11:19 Oxygen Flow Rate (L/min) 1.5 Oxygen Delivery Method Room Air Weight: 191 lb 9.307 oz Body Mass Index (BMI) 27.4 Intake & Output: Intake and Output for Last 24 Hours 08/12/20 08/13/20 08/14/20 23:59 23:59 23:59 Intake Total 3407.5 / 3407.5 1650 / 1650 Output Total 1150 / 1150 550 / 550 Balance 2257.5 / 2257.5 1100 / 1100 Lab / Micro Data Result Diagrams: 08/14/20 07:10 08/14/20 07:10 Labs: Laboratory Results - last 24 hr 08/13/20 08/13/20 08/13/20 14:15 17:42 22:15 WBC RBC Hgb Hct MCV MCH MCHC RDW Std Deviation RDW Coeff of Maite Plt Count MPV Immature Gran % (Auto) Neut % (Auto) Lymph % (Auto) [place] % (Auto) Eos % (Auto) Baso % (Auto) Absolute Neuts (auto) Absolute Lymphs (auto) Nucleated RBC % Reactive Lymphocytes Platelet Estimate Sodium Potassium Chloride Carbon Dioxide Anion Gap BUN Creatinine Estim Creat Clear Calc Est GFR (MDRD) Af Amer Est GFR (MDRD) Non-Af BUN/Creatinine Ratio Glucose Lactic Acid 3.3 H* Calcium Total Bilirubin AST ALT Alkaline Phosphatase Total Protein Albumin Globulin Albumin/Globulin Ratio POC Glucose 342 H 242 H 08/14/20 08/14/20 08/14/20 07:05 07:10 07:10 WBC 3.8 L RBC 3.98 L Hgb 12.2 L Hct 35.9 L MCV 90.2 MCH 30.7 MCHC 34.0 RDW Std Deviation 40.8 RDW Coeff of Maite 12.4 Plt Count 59 L MPV 10.8 Immature Gran % (Auto) 1.100 H Neut % (Auto) 65.6 Lymph % (Auto) 21.3 [place] % (Auto) 11.7 H Eos % (Auto) 0.0 Baso % (Auto) 0.3 Absolute Neuts (auto) 2.5 Absolute Lymphs (auto) 0.80 L Nucleated RBC % 0 Reactive Lymphocytes RARE Platelet Estimate MKD DEC Sodium 137 Potassium 4.4 Chloride 106 Carbon Dioxide 23.0 Anion Gap 8 BUN 30 H Creatinine 1.34 H Estim Creat Clear Calc 46.91 Est GFR (MDRD) Af Amer 66 Est GFR (MDRD) Non-Af 55 L BUN/Creatinine Ratio 22.4 H Glucose 193 H Lactic Acid Calcium 8.1 L Total Bilirubin 0.60 AST 65 H ALT 53 Alkaline Phosphatase 70 Total Protein 6.8 Albumin 2.8 L Globulin 4.0 Albumin/Globulin Ratio 0.7 L POC Glucose 188 H 08/14/20 11:13 WBC RBC Hgb Hct MCV MCH MCHC RDW Std Deviation RDW Coeff of Maite Plt Count MPV Immature Gran % (Auto) Neut % (Auto) Lymph % (Auto) [place] % (Auto) Eos % (Auto) Baso % (Auto) Absolute Neuts (auto) Absolute Lymphs (auto) Nucleated RBC % Reactive Lymphocytes Platelet Estimate Sodium Potassium Chloride Carbon Dioxide Anion Gap BUN Creatinine Estim Creat Clear Calc Est GFR (MDRD) Af Amer Est GFR (MDRD) Non-Af BUN/Creatinine Ratio Glucose Lactic Acid Calcium Total Bilirubin AST ALT Alkaline Phosphatase Total Protein Albumin Globulin Albumin/Globulin Ratio POC Glucose 306 H Micro: Microbiology 08/13/20 14:55 Stool Stool Lactoferrin - Final 08/13/20 14:55 Stool Enteric Bacteriology - Final 08/13/20 14:55 Stool Stool Occult Blood (MINDY) - Final 08/13/20 09:25 Urine, Clean Catch Legionella Antigen - Final 08/13/20 09:25 Urine, Clean Catch Streptococcus pneumoniae Antigen (M - Final 08/13/20 07:00 Mucosa - Nose SARS-CoV-2 Antigen (Rapid) - Final SARS-CoV-2 (COVID 19) Physical Exam Narrative Physical exam General: Alert, Oriented x3, Cooperative HEENT: Atraumatic, PERRLA, EOMI, Normocephalic Oral: No Gingival or Mucosal Lesions/ Ulcerations Neck: Supple, No JVD, Negative Carotid Bruits Lungs: Air entry diminished in bilateral lung bases. No crepitation/rhonchi. Dyspnea on exertion Cardiovascular: Regular rate, Regular Rhythm, Normal S1, Normal S2, No murmurs Abdomen: Bowel Sounds Present, Soft, Non Tender, Non-Distended : No renal angle tenderness. No suprapubic tenderness. Extremities: No edema, Capillary Refill Less than 3 Seconds Skin: Venous dermatitis changes. No open ulcer. Musculoskeletal: No Tenderness to Palpation of Joints or Extremities Neurological: Cranial nerves II-XII grossly intact, Deep Tendon Reflexes 2+/4 and Symmetrical, Neuro grossly intact Psych/Mental Status: Normal Affect, Appropriate. Assessment & Plan Assessment/Plan (1) Pneumonia due to COVID-19 virus: (2) Severe sepsis with acute organ dysfunction: (3) CLIFFORD (acute kidney injury): PLAN: YOLANDA MEDRANO, is a 80 M with history of hypertension and diabetes mellitus came to ER with fever, chills shortness of breath and diarrhea Chest x-ray individually reviewed and shows bibasilar atelectasis with some groundglass appearance in the lateral field of both lungs although not reported. EKG sinus rhythm with LAD at 81 bpm. QTc 443 ms. 1. Severe sepsis secondary to bilateral COVID-19 pneumonia: Patient is being admitted to monitored bed. IV fluid LR 30 mils per KG as per severe sepsis protocol. Blood pressure is good 145/58. Monitor for fluid overload and oxygen saturation. Started on remdesivir and Decadron. ID consult. If oxygen saturation deteriorates we will consult alarm operator. 08/14: Repeat lactic acid 3.3. Repeat lactic acid ordered. Blood pressure is good 114/69. Urinary antigens are negative. 2. Acute gastroenteritis secondary to COVID-19: Enteric pathology is negative. Stool for occult blood and lactoferrin are negative. Continue IV fluid resuscitation. Repeat lactic acid is elevated probably due to dehydration and severe sepsis. 3. 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 Monitor kidney function and electrolytes. If kidney function does not improve will do kidney ultrasound and consult nephrology. 08/14: BUN elevated. Creatinine shows improvement, creatinine 1.34. Continue IV fluid Ringer lactate. 4. Diabetes mellitus type 2: Accu-Chek before meals and at bedtime continue sliding scale Glucose elevated. 5. Hypertension: Blood pressure is good. In medical history CHF is mentioned but patient denies history of coronary artery disease or CHF. No chest pain. 6 D-dimer elevated. Started on Lovenox 30 g subcu daily based on creatinine clearance and if stool for occult blood negative. Patient also has thrombocytopenia probably due to severe sepsis. Bilateral venous Doppler and VQ scan ordered. Patient does not have prior history of DVT or PE. Modified Wells criteria for PE is 0. Age-adjusted D-dimer states low risk. 08/14: Platelet count is 59,000. DVT prophylaxis DVT prophylaxis: BiLlateral SCDs. Lovenox as mentioned above Living will/advanced directive/end of life care: Patient does not have living will or advanced directive. Patient's and daughter are power of workers compensation defense attorney for health. After discussion of benefits/risks procedures involved with full code, DNR CC arrest and DNR CC, the patient opted for full code and okay with intubation Patient does want artificial life support including intubation, tube feed, ventilator and/chest compression, central venous catheter, vasopressor and DC shock if needed Total time spent in [id number] encounter in discussion of advanced directive 16 minutes. Microbiology Past 72 Hours 08/13/20 14:55 Stool Stool Lactoferrin - Final 08/13/20 14:55 Stool Enteric Bacteriology - Final 08/13/20 14:55 Stool Stool Occult Blood (MINDY) - Final 08/13/20 09:25 Urine, Clean Catch Legionella Antigen - Final 08/13/20 09:25 Urine, Clean Catch Streptococcus pneumoniae Antigen (M - Final 08/13/20 07:00 Mucosa - Nose SARS-CoV-2 Antigen (Rapid) - Final SARS-CoV-2 (COVID 19) Laboratory Results 08/13/20 14:15: Lactic Acid 3.3 H* 08/13/20 17:42: POC Glucose 342 H 08/13/20 22:15: POC Glucose 242 H 08/14/20 07:05: POC Glucose 188 H 08/14/20 07:10: WBC 3.8 L, RBC 3.98 L, Hgb 12.2 L, Hct 35.9 L, MCV 90.2, MCH 30.7, MCHC 34.0, RDW Std Deviation 40.8, RDW Coeff of Maite 12.4, Plt Count 59 L, MPV 10.8, Immature Gran % (Auto) 1.100 H, Neut % (Auto) 65.6, Lymph % (Auto) 21.3, [place] % (Auto) 11.7 H, Eos % (Auto) 0.0, Baso % (Auto) 0.3, Absolute Neuts (auto) 2.5, Absolute Lymphs (auto) 0.80 L, Nucleated RBC % 0, Reactive Lymphocytes RARE, Platelet Estimate MKD 08/14/20 07:10: Sodium 137, Potassium 4.4, Chloride 106, Carbon Dioxide 23.0, Anion Gap 8, BUN 30 H, Creatinine 1.34 H, Estim Creat Clear Calc 46.91, Est GFR (MDRD) Af Amer 66, Est GFR (MDRD) Non-Af 55 L, BUN/Creatinine Ratio 22.4 H, Glucose 193 H, Calcium 8.1 L, Total Bilirubin 0.60, AST 65 H, ALT 53, Alkaline Phosphatase 70, Total Protein 6.8, Albumin 2.8 L, Globulin 4.0, Albumin/Globulin Ratio 0.7 L 08/14/20 11:13: POC Glucose 306 H Clinical Impression(s) from Imaging Studies Chest X-Ray 08/13/20 07:17 IMPRESSION: Poor inspiration with some bibasilar atelectasis. Electronically Signed: Danny Sorensen MD at 8:19 EDT Tel , Service support , Charges/Coding Visit Charges Inpatient E&M: 61116 Subs Hosp L2
[2020-08-14] MEDS: Lactated Ringers 1,000 ML 100 ML IV (14:45)
[2020-08-14] MEDS: Lactated Ringers 1,000 ML 999 ML IV (14:45)
[2020-08-14 15:31] LABS: Lactic Acid 3.7 mmol/L (0.4-1.9)
[2020-08-14] MEDS: Lactated Ringers 500 ML 999 ML IV (15:59)
[2020-08-14] MEDS: Lactated Ringers 1,000 ML 75 ML IV (16:01)
[2020-08-14 16:21] LABS: Bedside Glucose 342 mg/dL (70-110)
[2020-08-14] MEDS: Insulin Lispro 100 UNIT/ML INSULN.PEN 15 UNIT SC (17:30)
[2020-08-14 18:56] LABS: Reflex Lactate? Y
[2020-08-14 22:41] LABS: Bedside Glucose 323 mg/dL (70-110)
[2020-08-15] VITALS (8 sets, daily range): BP systolic 121–131; BP diastolic 52–56; PULSE 53–80; RESP 15–16; TEMP 35.9–36.4; O2SAT 94–96
[2020-08-15 06:15] LABS: Absolute Lymphocyte Count 0.83 X10^3/uL (0.83-4.51); Absolute Neutrophil Count 2.6 X10^3/uL (2.0-7.7); Basophil# 0.01 X10^3/uL; Basophil% 0.3 % (0-1); Hematocrit 35.7 % (40-54); Hemoglobin 12.1 g/dL (13.0-16.5); Lymphocyte # 0.83 X10^3/ul (0.83-4.51); Lymphocyte % 21.7 % (19-41); Mean Corp Hgb Conc 33.9 g/dL (32-36); Mean Corpuscular Hgb 30.4 pg (27.0-32.0); Mean Corpuscular Volume 89.7 fL (80-94); Mean Platelet Vol. 11.5 fl (6.2-12.0); Monocyte# 0.41 X10^3/uL; Monocyte% 10.7 % (0-10); NRBC Flagged by Analyzer 0 % (0-5); Neutrophil # 2.55 X10^3/uL (2.7-7.7); Neutrophil % 66.5 % (47-70); POSITIVE COUNT YES; POSITIVE MORPHOLOGY YES; Platelet Count 66 K/mm3 (150-450); RBC Distribution Width CV 12.1 % (11.6-14.6); RBC Distribution Width SD 39.6 fl (35.1-43.9); Red Blood Count 3.98 M/mm3 (4.6-6.2); White Blood Count 3.8 K/mm3 (4.4-11.0)
[2020-08-15 06:16] LABS: Differential Indicated SCAN CRITERIA MET
[2020-08-15 06:36] LABS: ALB/GLOB Ratio 0.8 RATIO (0.9-2.4); AST(SGOT) 77 U/L (15-37); Alanine Aminotransfer ALT/SGPT 58 U/L (16-61); Albumin, Serum 2.7 g/dL (3.2-5.0); Alkaline Phosphatase 70 U/L (45-117); Anion Gap 8 (5-15); BUN 30 mg/dL (7-18); BUN/Creat Ratio 25.4 RATIO (10-20); Calcium,Total 7.7 mg/dL (8.5-10.1); Chloride 105 mmol/L (98-107); Creatinine, Serum 1.18 mg/dL (0.70-1.30); EST Glomerular Filtration Rate 63 mL/min (>60); Est Glom Filt Rate - Afr Amer 77 mL/min (>60); Estimated Creatinine Clearance 53.27 ml/min; Globulin 3.4 g/dL (2.2-4.2); Glucose 178 mg/dL (74-106); Potassium 4.4 mmol/L (3.5-5.1); Protein, Total 6.1 g/dL (6.4-8.2); Sodium Level 137 mmol/L (136-145)
[2020-08-15 06:37] LABS: Lactic Acid 1.9 mmol/L (0.4-1.9)
[2020-08-15 07:01] LABS: Bedside Glucose 176 mg/dL (70-110)
[2020-08-15] MEDS: Aspirin 81 MG TAB.CHEW PO (09:58)
[2020-08-15] MEDS: Insulin Lispro 100 UNIT/ML INSULN.PEN SC ×2 (09:58→12:36)
[2020-08-15] MEDS: dexAMETHasone 10 MG/ML Vial 6 MG IV (09:59)
[2020-08-15] MEDS: Insulin Lispro 100 UNIT/ML INSULN.PEN 15 UNIT SC ×2 (09:59→12:36)
[2020-08-15] MEDS: Metoprolol Tartrate 25 MG Tablet PO (10:00)
[2020-08-15] MEDS: guaiFENesin/D-Methorphan TAB.SR.12H 1 TABLET PO (10:00)
[2020-08-15] MEDS: 0.9% Saline Lock 10 ML Syringe IV (10:01)
[2020-08-15] MEDS: Enoxaparin 30 MG/0.3 ML Syringe SC (10:20)
[2020-08-15 12:46] LABS: Bedside Glucose 279 mg/dL (70-110)
--- NOTE | 2020-08-15 14:18 | PCM.DC ---
Discharge Instructions Diet Discharge Diet: Carb Control Diet Activity Discharge Activity: Return to Normal Activity Dressing / Incision Call your doctor if you observe: Fever of 101 or Higher, Shortness of breath, Dizziness, Swelling in the ankles, Chest pain and Increased palpitations (irregular heartbeat) Follow Up Care Test Results: Test results from this visit will be discussed in further detail at your follow-up appointment, if applicable. Discharge Plan Admission Admit Date/Time: 08/13/20 09:23 Attending Provider: Sven Britt Primary Care Provider: Matthew Conroy Consulting Providers: Darius Petersen Patient Instructions: Coronavirus Disease 2019 (COVID-19): Overview, Coronavirus Disease 2019 (COVID-19): Caring for Yourself or Others, COVID-19 and the Flu: What's the Difference? Discharge Orders/Prescriptions Prescriptions: New dexamethasone 2 mg tablet 6 mg PO DAILY 8 Days Qty: 24 RF: 0 Continued metoprolol tartrate 50 mg tablet 50 mg PO BID RF: 0 Kombiglyze XR 5-1,000 mg tablet, ER multiphase 24 hr 1 tab PO DAILY RF: 0 Farxiga 5 mg tablet 5 mg PO DAILY RF: 0 losartan 100 mg tablet 100 mg PO DAILY RF: 0 hydrochlorothiazide 12.5 mg tablet 12.5 mg PO DAILY RF: 0 Livalo 2 mg tablet 2 mg PO DAILY RF: 0 aspirin 81 mg Tablet 81 mg PO DAILY RF: 0 insulin aspart U-100 100 unit/mL (3 mL) insulin pen 50 unit SUBCUT TIDCM RF: 0 insulin detemir U-100 100 unit/mL (3 mL) Insulin Pen 65 unit SUBCUT BID RF: 0 Referrals / Follow Up: Matthew Conroy MD [Primary Care Provider] - Within 2 Weeks Disposition Disposition (needs filled in before D/C Order can be placed): Home, self care
--- NOTE | 2020-08-15 14:41 | CON.PCM.ID_ITS ---
Assessment & Plan Assessment/Plan (1) Pneumonia due to COVID-19 virus: PLAN: covid with hypoxia - much improved, on RA. Sats as low as 94% here. 10 days total dex, quarantine for 20 days from start of symptoms 08/05. is asymptomatic, unvaccinated. Recommended she get covid testing and both should get vaccine in next few weeks. Ok for d/c home, will follow as needed, thank you (2) CLIFFORD (acute kidney injury): HPI Consult Data Date of Consult: 08/15/20 HPI Narrative HPI Narrative: YOLANDA MEDRANO, is a 80 M who presented with sx starting 08/05, c/o fever, mild sore throat, diarrhea, aches. Had progressive cough and SOB, came to ED. Covid (+). Has not gotten covid vaccine. Started on dex/remdesivir, feeling much better, on RA. Full ROS performed and neg except as noted above. [facility] Medical History CKD (chronic kidney disease) stage 3, GFR 30-59 ml/min Congestive heart failure (CHF) Diabetes Hypertension Home Medications Farxiga 5 mg PO DAILY 08/13/20 [History Last Taken 08/12/20] Kombiglyze XR 1 tab PO DAILY 08/13/20 [History Last Taken 08/12/20] Livalo 2 mg PO DAILY 08/13/20 [History Last Taken 08/12/20] aspirin 81 mg PO DAILY 08/13/20 [History Last Taken 08/12/20] hydrochlorothiazide 12.5 mg PO DAILY 08/13/20 [History Last Taken 08/12/20] insulin aspart U-100 50 unit SUBCUT TIDCM 08/13/20 [History Last Taken 08/12/20] insulin detemir U-100 65 unit SUBCUT BID 08/13/20 [History Last Taken 08/12/20] losartan 100 mg PO DAILY 08/13/20 [History Last Taken 08/12/20] metoprolol tartrate 50 mg PO BID 08/13/20 [History Last Taken 08/12/20] dexamethasone 6 mg PO DAILY 8 Days #24 tab 08/15/20 [Rx Last Taken Unknown] Allergy/AdvReac Type Severity Reaction Status Date / Time No Known Allergies Allergy Verified 08/13/20 07:00 Family History (Updated 08/13/20 @ 10:[address] Rodrigo Reilly MD) Brother Colon cancer Social History Smoking Status: Never smoker Physical Exam Const alert, oriented x3 and no apparent distress General Appearance: cooperative HEENT normocephalic and head/scalp atraumatic Eyes PERRL and EOMs intact bilaterally Neck supple and No nodes Resp clear to auscultation bilaterally Auscultation: diminished lung sounds Cardio regular rate and regular rhythm GI normal to inspection, nondistended, normoactive bowel sounds Extremity no clubbing, cyanosis or edema Skin no rashes or lesions noted Lab / Micro Data Result Diagrams: 08/15/20 06:00 08/15/20 06:00 Labs: Laboratory Results - last 24 hr 08/14/20 08/14/20 08/14/20 14:50 15:57 22:09 WBC RBC Hgb Hct MCV MCH MCHC RDW Std Deviation RDW Coeff of Maite Plt Count MPV Immature Gran % (Auto) Neut % (Auto) Lymph % (Auto) [place] % (Auto) Eos % (Auto) Baso % (Auto) Absolute Neuts (auto) Absolute Lymphs (auto) Nucleated RBC % Sodium Potassium Chloride Carbon Dioxide Anion Gap BUN Creatinine Estim Creat Clear Calc Est GFR (MDRD) Af Amer Est GFR (MDRD) Non-Af BUN/Creatinine Ratio Glucose Lactic Acid 3.7 H* Calcium Total Bilirubin AST ALT Alkaline Phosphatase Total Protein Albumin Globulin Albumin/Globulin Ratio POC Glucose 342 H 323 H 08/15/20 08/15/20 08/15/20 06:00 06:00 06:00 WBC 3.8 L RBC 3.98 L Hgb 12.1 L Hct 35.7 L MCV 89.7 MCH 30.4 MCHC 33.9 RDW Std Deviation 39.6 RDW Coeff of Maite 12.1 Plt Count 66 L MPV 11.5 Immature Gran % (Auto) 0.800 Neut % (Auto) 66.5 Lymph % (Auto) 21.7 [place] % (Auto) 10.7 H Eos % (Auto) 0.0 Baso % (Auto) 0.3 Absolute Neuts (auto) 2.6 Absolute Lymphs (auto) 0.83 Nucleated RBC % 0 Sodium 137 Potassium 4.4 Chloride 105 Carbon Dioxide 24.0 Anion Gap 8 BUN 30 H Creatinine 1.18 Estim Creat Clear Calc 53.27 Est GFR (MDRD) Af Amer 77 Est GFR (MDRD) Non-Af 63 BUN/Creatinine Ratio 25.4 H Glucose 178 H Lactic Acid 1.9 Calcium 7.7 L Total Bilirubin 0.50 AST 77 H ALT 58 Alkaline Phosphatase 70 Total Protein 6.1 L Albumin 2.7 L Globulin 3.4 Albumin/Globulin Ratio 0.8 L POC Glucose 08/15/20 08/15/20 06:29 12:35 WBC RBC Hgb Hct MCV MCH MCHC RDW Std Deviation RDW Coeff of Maite Plt Count MPV Immature Gran % (Auto) Neut % (Auto) Lymph % (Auto) [place] % (Auto) Eos % (Auto) Baso % (Auto) Absolute Neuts (auto) Absolute Lymphs (auto) Nucleated RBC % Sodium Potassium Chloride Carbon Dioxide Anion Gap BUN Creatinine Estim Creat Clear Calc Est GFR (MDRD) Af Amer Est GFR (MDRD) Non-Af BUN/Creatinine Ratio Glucose Lactic Acid Calcium Total Bilirubin AST ALT Alkaline Phosphatase Total Protein Albumin Globulin Albumin/Globulin Ratio POC Glucose 176 H 279 H Micro: Microbiology 08/13/20 09:05 Blood Culture - Preliminary Blood Culture (Wb) - No Site/Description Given No growth in 48 hours. 08/13/20 09:05 Blood Culture - Preliminary Blood Culture (Wb) - No Site/Description Given No growth in 48 hours. Radiology Impression Venous Doppler Study 08/13/20 11:18 Interpretation Summary Deep veins of the lower extremities are bilaterally patent and compressible segmentally. There is no evidence of deep vein thrombosis on either side. Valvular competence appears intact within the proximal deep venous systems bilaterally. The great saphenous veins appear bilaterally patent and compressible segmentally. Ordering Physician: Rodrigo Reilly Referring Physician: ELIZABETH LIANG Performed By: Celina Varela, AUDREYCS, RVT
--- NOTE | 2020-08-15 14:51 | DS.PCM_ITS ---
Providers Date of Admission: 08/13/20 Primary Care Physician: Dr. Matthew Liang MD Consultations 08/13/20 08:33 Consult: Infectious Disease Routine Consulting Provider: Darius Petersen Reason for Consult: Covid-19 EMERGENT Consult: No MD Notified: Yes Date Notified: 08/13/20 Time Notified: 06:23 Method of Notification: Answering Service Reason For Visit: COVID 19 PNEUMONIA Diagnosis Discharge Diagnosis (1) Pneumonia due to COVID-19 virus: Status: Acute Code(s): U07.1 - COVID-19; J12.82 - Pneumonia due to coronavirus disease 2019 (2) CLIFFORD (acute kidney injury): Status: Acute Code(s): N17.9 - Acute kidney failure, unspecified Medications at Discharge Home Medications Farxiga 5 mg PO DAILY 08/13/20 Kombiglyze XR 1 tab PO DAILY 08/13/20 Livalo 2 mg PO DAILY 08/13/20 aspirin 81 mg PO DAILY 08/13/20 hydrochlorothiazide 12.5 mg PO DAILY 08/13/20 insulin aspart U-100 50 unit SUBCUT TIDCM 08/13/20 insulin detemir U-100 65 unit SUBCUT BID 08/13/20 losartan 100 mg PO DAILY 08/13/20 metoprolol tartrate 50 mg PO BID 08/13/20 dexamethasone 6 mg PO DAILY 8 Days #24 tab 08/15/20 Hospital Course Operations None Procedures None Summary of Care Provided Minutes Spent on Discharge: 37 Hospital Course: Per HPI: YOLANDA MEDRANO, is a 80 M with history of hypertension and diabetes mellitus came to ER with fever body aches and mild abdominal pain. Patient states his symptom complex started about a week ago with generalized weakness, tiredness body aches and pain. Then he started having diarrhea about 5 times loose, black in color. He denies abdominal pain to me. He had colonoscopy about a year ago and was negative as per the patient. Patient also has fever, chills for last 3 days. Mild cough predominantly dry and shortness of breath on exertion for 3 to 4 days. In ED, temperature 99.5, pulse ox 94% on room air. Heart rate and blood pressure controlled. Chest x-ray individually reviewed and shows bibasilar atelectasis with some groundglass appearance in the lateral field of both lungs although not reported. EKG sinus rhythm with LAD at 81 bpm. QTc 443 ms. Previous EKG in March 2008 normal sinus rhythm at 64 beats respiratory. Abnormal labs reviewed. Although not initially ordered By ER physician, lactic acidosis came 2.5, D-dimer 0.95, procalcitonin 0.27. Inflammatory markers LDH, fibrinogen and CRP elevated. BUN/creatinine elevated. Hospital Course: 1. Severe sepsis secondary to bilateral COVID-19 pneumonia: Patient is being a dmitted to monitored bed. IV fluid LR 30 mils per KG as per severe sepsis protocol. Blood pressure is good 145/58. Monitor for fluid overload and oxygen saturation. Repeat lactic acid. Started on remdesivir and Decadron. ID consult. If oxygen saturation deteriorates we will consult duct cleaner. -08/15/2020: Severe sepsis has resolved, he is ambulating without any oxygen and he does not require any oxygen at rest. He has received 2 doses of remdesivir and will complete 8 doses of Decadron on discharge. Infectious disease evaluated him today and felt that he was stable for discharge. I discussed with him the plan today for discharge and he expressed understanding of the risk benefits of going home and was still like to go home today. 2. Acute gastroenteritis secondary to COVID-19: Enteric pathology panel and stool for occult blood ordered. IV fluid resuscitation -08/15/2020: Acute gastroenteritis has resolved 3. 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 Monitor kidney function and electrolytes. If kidney function does not improve will do kidney ultrasound and consult nephrology. -08/15/2020: CLIFFORD has resolved 4. Diabetes mellitus type 2: Accu-Chek before meals and at bedtime continue sliding scale -08/15/2020: Discussed with him how Decadron can increase his blood sugar and that he needs to be vigilant with his diet and monitoring his blood sugar as an outpatient. We will resume his home diabetic medications. 5. Hypertension: Blood pressure is good. In medical history CHF is mentioned but patient denies history of coronary artery disease or CHF. No chest pain. 6 D-dimer elevated. Started on Lovenox 30 g subcu daily based on creatinine clearance and if stool for occult blood negative. Patient also has thrombocytopenia probably due to severe sepsis. Bilateral venous Doppler and VQ scan ordered. Patient does not have prior history of DVT or PE. Modified Wells criteria for PE is 0. Age-adjusted D-dimer states low risk. -08/15/2020: D-dimer was slightly elevated, venous Doppler was negative for DVT and modified Wells criteria was 0 for a PE therefore no need for VQ scan. In discussions with ID, it was not felt that the patient needed any anticoagulation on discharge. Physical Exam Const alert, oriented x3 and no apparent distress General Appearance: cooperative HEENT normocephalic Mouth: dry mucous membranes Eyes PERRL, EOMs intact bilaterally and conjunctivae normal Neck supple and no JVD Resp normal respiratory effort, no retractions, no use of accessory muscles and clear to auscultation bilaterally Auscultation: diminished lung sounds; Negative for crackles, rales, rhonchi or wheezes Cardio regular rate, regular rhythm, S1 normal heart sound, S2 normal heart sound and no murmurs GI soft to palpation, non-tender and non-distended; Negative for hepatosplenomegaly Extremity no clubbing, cyanosis or edema Skin no rashes or lesions noted Neuro no focal motor deficits and no sensory deficits noted Psych affect normal Appearance: appropriate Weight / BMI Weight Weight: 191 lb 9.307 oz Body Mass Index (BMI) 27.4 ABG / Lab / Microbiology Data Result Diagrams: 08/15/20 06:00 08/15/20 06:00 Laboratory: Laboratory Results - last 24 hr 08/14/20 08/14/20 08/14/20 14:50 15:57 22:09 WBC RBC Hgb Hct MCV MCH MCHC RDW Std Deviation RDW Coeff of Maite Plt Count MPV Immature Gran % (Auto) Neut % (Auto) Lymph % (Auto) [place] % (Auto) Eos % (Auto) Baso % (Auto) Absolute Neuts (auto) Absolute Lymphs (auto) Nucleated RBC % Sodium Potassium Chloride Carbon Dioxide Anion Gap BUN Creatinine Estim Creat Clear Calc Est GFR (MDRD) Af Amer Est GFR (MDRD) Non-Af BUN/Creatinine Ratio Glucose Lactic Acid 3.7 H* Calcium Total Bilirubin AST ALT Alkaline Phosphatase Total Protein Albumin Globulin Albumin/Globulin Ratio POC Glucose 342 H 323 H 08/15/20 08/15/20 08/15/20 06:00 06:00 06:00 WBC 3.8 L RBC 3.98 L Hgb 12.1 L Hct 35.7 L MCV 89.7 MCH 30.4 MCHC 33.9 RDW Std Deviation 39.6 RDW Coeff of Maite 12.1 Plt Count 66 L MPV 11.5 Immature Gran % (Auto) 0.800 Neut % (Auto) 66.5 Lymph % (Auto) 21.7 Alger % (Auto) 10.7 H Eos % (Auto) 0.0 Baso % (Auto) 0.3 Absolute Neuts (auto) 2.6 Absolute Lymphs (auto) 0.83 Nucleated RBC % 0 Sodium 137 Potassium 4.4 Chloride 105 Carbon Dioxide 24.0 Anion Gap 8 BUN 30 H Creatinine 1.18 Estim Creat Clear Calc 53.27 Est GFR (MDRD) Af Amer 77 Est GFR (MDRD) Non-Af 63 BUN/Creatinine Ratio 25.4 H Glucose 178 H Lactic Acid 1.9 Calcium 7.7 L Total Bilirubin 0.50 AST 77 H ALT 58 Alkaline Phosphatase 70 Total Protein 6.1 L Albumin 2.7 L Globulin 3.4 Albumin/Globulin Ratio 0.8 L POC Glucose 08/15/20 08/15/20 06:29 12:35 WBC RBC Hgb Hct MCV MCH MCHC RDW Std Deviation RDW Coeff of Maite Plt Count MPV Immature Gran % (Auto) Neut % (Auto) Lymph % (Auto) [place] % (Auto) Eos % (Auto) Baso % (Auto) Absolute Neuts (auto) Absolute Lymphs (auto) Nucleated RBC % Sodium Potassium Chloride Carbon Dioxide Anion Gap BUN Creatinine Estim Creat Clear Calc Est GFR (MDRD) Af Amer Est GFR (MDRD) Non-Af BUN/Creatinine Ratio Glucose Lactic Acid Calcium Total Bilirubin AST ALT Alkaline Phosphatase Total Protein Albumin Globulin Albumin/Globulin Ratio POC Glucose 176 H 279 H Microbiology: Microbiology 08/13/20 09:05 Blood Culture - Preliminary Blood Culture (Wb) - No Site/Description Given No growth in 48 hours. 08/13/20 09:05 Blood Culture - Preliminary Blood Culture (Wb) - No Site/Description Given No growth in 48 hours. Microbiology 08/13/20 09:05 Blood Culture (Wb) - No Site/Description Given Blood Culture - Preliminary No growth in 48 hours. 08/13/20 09:05 Blood Culture (Wb) - No Site/Description Given Blood Culture - Preliminary No growth in 48 hours. 08/13/20 14:55 Stool Stool Lactoferrin - Final 08/13/20 14:55 Stool Enteric Bacteriology - Final 08/13/20 14:55 Stool Stool Occult Blood (MINDY) - Final 08/13/20 09:25 Urine, Clean Catch Legionella Antigen - Final 08/13/20 09:25 Urine, Clean Catch Streptococcus pneumoniae Antigen (M - Final 08/13/20 07:00 Mucosa - Nose SARS-CoV-2 Antigen (Rapid) - Final SARS-CoV-2 (COVID 19) Radiography Diagnostic Testing: Radiology Impression Venous Doppler Study 08/13/20 11:18 Interpretation Summary Deep veins of the lower extremities are bilaterally patent and compressible segmentally. There is no evidence of deep vein thrombosis on either side. Valvular competence appears intact within the proximal deep venous systems bilaterally. The great saphenous veins appear bilaterally patent and compressible segmentally. Ordering Physician: Rodrigo Reilly Referring Physician: ELIZABETH LIANG Performed By: Celina Varela, LIZ, RVT D/C Instructions Discharge Diet: Carb Control Diet Call your doctor if you observe: Fever of 101 or Higher, Shortness of breath, Dizziness, Swelling in the ankles, Chest pain and Increased palpitations (irregular heartbeat) Meaningful Use Info Meaningful Use Diagnoses (Choose all that apply): None applicable Discharge Plan Admission Admit Date/Time: 08/13/20 09:23 Attending Provider: Sven Britt Primary Care Provider: Matthew Liang Consulting Providers: Darius Petersen Instructions Patient Instructions: Coronavirus Disease 2019 (COVID-19): Overview, Coronavirus Disease 2019 (COVID-19): Caring for Yourself or Others, COVID-19 and the Flu: What's the Difference? Discharge Orders/Prescriptions Prescriptions: New dexamethasone 2 mg tablet 6 mg PO DAILY 8 Days Qty: 24 RF: 0 Continued metoprolol tartrate 50 mg tablet 50 mg PO BID RF: 0 Kombiglyze XR 5-1,000 mg tablet, ER multiphase 24 hr 1 tab PO DAILY RF: 0 Farxiga 5 mg tablet 5 mg PO DAILY RF: 0 losartan 100 mg tablet 100 mg PO DAILY RF: 0 hydrochlorothiazide 12.5 mg tablet 12.5 mg PO DAILY RF: 0 Livalo 2 mg tablet 2 mg PO DAILY RF: 0 aspirin 81 mg Tablet 81 mg PO DAILY RF: 0 insulin aspart U-100 100 unit/mL (3 mL) insulin pen 50 unit SUBCUT TIDCM RF: 0 insulin detemir U-100 100 unit/mL (3 mL) Insulin Pen 65 unit SUBCUT BID RF: 0 Referrals / Follow Up: Matthew Liang MD [Primary Care Provider] - Within 2 Weeks Disposition Disposition (needs filled in before D/C Order can be placed): Home, self care Charges/Coding Visit Charges Inpatient E&M: 86322 Disch Hosp
--- NOTE | 2020-08-15 16:02 | CASEMGMT ---
Pt does not qualify for any home oxygen at this time. Mikhail SOUSA CM
--- NOTE | 2020-08-16 15:35 | CASEMGMT ---
LARS DAVALOS Discharge Follow Up COVID Phone Call: Call Date: 08.16.20 Discharge Date: 08.15.20 Time of Call:1532 Duration:3 min Admitting Dx: COVID 19 pneumonia LARS DAVALOS completed follow up COVID phone call after recent hospitalization. Pt states he is doing well. He obtained his rx before leaving the hospital yesterday. He states that he is not using a separate bathroom from . Instructed on the importance of and quarantine. Pt verbalizes understanding. Pt states his daughter is able to get his groceries as needed. He also reports that 's office called him this morning to check on him. He states they will call back in a few days to schedule his follow up appt. Pt denies questions regarding his medications or dc instructions.
== END 2020-08-15 17:28 | disposition home or self-care (01) | DRG 871 ==
LOC: ED 09:16 → PCU 13:41
PROVIDERS: Admitting Provider Internal Medicine; Emergency Provider Emergency Medicine; PCP Family Medicine; Visit Provider Family Medicine
DX: A41.89 Other specified sepsis (principal); U07.1 COVID-19; J12.82 Pneumonia due to coronavirus disease 2019; N17.0 Acute kidney failure with tubular necrosis; A08.39 Other viral enteritis; R65.20 Severe sepsis without septic shock; I12.9 Hypertensive chronic kidney disease with stage 1 through stage 4 chronic kidney disease, or unspecified chronic kidney disease; E11.22 Type 2 diabetes mellitus with diabetic chronic kidney disease; N18.32 Chronic kidney disease, stage 3b; R09.02 Hypoxemia; E86.0 Dehydration; Z79.82 Long term (current) use of aspirin; Z79.4 Long term (current) use of insulin; Z79.899 Other long term (current) drug therapy
CPT/HCPCS: 36415; 71045; 80048; 80053; 80076; 82274; 82550; 82962; 83605; 83615; 83630; 83735; 83880; 84145; 84484; 85025; 85379; 85384; 85610; 86140; 87040; 87426; 87449; 87506; 93005; 93970; 94667; 94668; 97162; 97165; 97802; 99285; J7030; J7040; J7050; J7120; A4216

== ENCOUNTER → 2021-01-16 09:51 | Outpatient (CLI) | payer MEDICARE, SELFPAY ==
[2021-01-16 15:46] LABS: Anion Gap 5 (5-15); BUN 29 mg/dL (7-18); BUN/Creat Ratio 18.8 RATIO (10-20); Calcium,Total 9.5 mg/dL (8.5-10.1); Chloride 107 mmol/L (98-107); Creatinine, Serum 1.54 mg/dL (0.70-1.30); EST Glomerular Filtration Rate 47 mL/min (>60); Est Glom Filt Rate - Afr Amer 56 mL/min (>60); Glucose 79 mg/dL (74-106); Potassium 4.4 mmol/L (3.5-5.1); Sodium Level 138 mmol/L (136-145); Thyroid Stim Hormone (TSH) 1.91 uIU/mL (0.358-3.74)
== END ==
PROVIDERS: PCP Family Medicine; Visit Provider Family Medicine
DX: E11.21 Type 2 diabetes mellitus with diabetic nephropathy (principal)
CPT/HCPCS: 36415; 80048; 84443

== ENCOUNTER 2021-05-23 08:28 | Outpatient (CLI) | payer MEDICARE, SELFPAY ==
[2021-05-23 10:30] LABS: Anion Gap 5 (5-15); BUN 31 mg/dL (7-18); BUN/Creat Ratio 16.8 RATIO (10-20); Calcium,Total 8.9 mg/dL (8.5-10.1); Chloride 106 mmol/L (98-107); Cholesterol 229 mg/dL (200); Creatinine, Serum 1.85 mg/dL (0.70-1.30); EST Glomerular Filtration Rate 38 mL/min (>60); Est Glom Filt Rate - Afr Amer 46 mL/min (>60); Glucose 176 mg/dL (74-106); High Density Lipoprotein 27 mg/dL; Potassium 3.9 mmol/L (3.5-5.1); Sodium Level 138 mmol/L (136-145); Triglycerides 997 mg/dL
== END 2021-05-23 23:59 | disposition home or self-care (01) ==
PROVIDERS: PCP Family Medicine; Referring Provider Family Medicine; Visit Provider Family Medicine
DX: E11.21 Type 2 diabetes mellitus with diabetic nephropathy (principal)
CPT/HCPCS: 36415; 80048; 80061

== ENCOUNTER 2021-06-14 10:00 | Outpatient (CLI) | payer MEDICARE, SELFPAY ==
[2021-06-14 12:38] LABS: AST(SGOT) 48 U/L (15-37); Alanine Aminotransfer ALT/SGPT 46 U/L (16-61); Albumin, Serum 3.7 g/dL (3.2-5.0); Alkaline Phosphatase 81 U/L (45-117); Anion Gap 9 (5-15); BUN 29 mg/dL (7-18); BUN/Creat Ratio 18.7 RATIO (10-20); Calcium,Total 8.9 mg/dL (8.5-10.1); Chloride 108 mmol/L (98-107); Cholesterol 137 mg/dL (200); Creatinine, Serum 1.55 mg/dL (0.70-1.30); EST Glomerular Filtration Rate 46 mL/min (>60); Est Glom Filt Rate - Afr Amer 56 mL/min (>60); Globulin 3.8 g/dL (2.2-4.2); Glucose 164 mg/dL (74-106); High Density Lipoprotein 32 mg/dL; Potassium 4.4 mmol/L (3.5-5.1); Protein, Total 7.5 g/dL (6.4-8.2); Sodium Level 140 mmol/L (136-145); Thyroid Stim Hormone (TSH) 1.61 uIU/mL (0.358-3.74); Triglycerides 452 mg/dL
== END 2021-06-14 23:59 | disposition home or self-care (01) ==
LOC: MFPLAB 10:03
PROVIDERS: PCP Family Medicine; Referring Provider Family Medicine; Visit Provider Family Medicine
DX: E11.22 Type 2 diabetes mellitus with diabetic chronic kidney disease (principal); E11.69 Type 2 diabetes mellitus with other specified complication; N18.30 Chronic kidney disease, stage 3 unspecified
CPT/HCPCS: 36415; 80053; 80061; 84443

== ENCOUNTER → 2022-02-08 | Outpatient (CLI) | payer MEDICARE, SELFPAY ==
[2022-02-08 11:09] LABS: ALB/GLOB Ratio 1.1 RATIO (0.9-2.4); AST(SGOT) 57 U/L (15-37); Alanine Aminotransfer ALT/SGPT 59 U/L (16-61); Alkaline Phosphatase 98 U/L (45-117); Anion Gap 9 (5-15); BUN 23 mg/dL (7-18); BUN/Creat Ratio 15.3 RATIO (10-20); Chloride 106 mmol/L (98-107); Cholesterol 152 mg/dL (200); EST Glomerular Filtration Rate 48 mL/min (>60); Est Glom Filt Rate - Afr Amer 58 mL/min (>60); Globulin 3.8 g/dL (2.2-4.2); Glucose 145 mg/dL (74-106); High Density Lipoprotein 35 mg/dL; Potassium 3.9 mmol/L (3.5-5.1); Protein, Total 7.8 g/dL (6.4-8.2); Sodium Level 139 mmol/L (136-145); Triglycerides 548 mg/dL
[2022-02-12 11:33] LABS: Thyroid Stim Hormone (TSH) 2.24 uIU/mL (0.358-3.74)
== END | disposition home or self-care (01) ==
LOC: MFPLAB 08:20
PROVIDERS: PCP Family Medicine; Referring Provider Family Medicine; Visit Provider Family Medicine
DX: E11.69 Type 2 diabetes mellitus with other specified complication (principal)
CPT/HCPCS: 36415; 80053; 80061; 84443

== ENCOUNTER → 2022-07-16 | Outpatient (CLI) | payer MEDICARE, SELFPAY ==
[2022-07-16 15:58] LABS: Anion Gap 7 (5-15); BUN 22 mg/dL (7-18); BUN/Creat Ratio 15.5 RATIO (10-20); Calcium,Total 8.8 mg/dL (8.5-10.1); Chloride 105 mmol/L (98-107); Creatinine, Serum 1.42 mg/dL (0.70-1.30); EST Glomerular Filtration Rate 51 mL/min (>60); Est Glom Filt Rate - Afr Amer 62 mL/min (>60); Glucose 153 mg/dL (74-106); Potassium 4.5 mmol/L (3.5-5.1); Sodium Level 137 mmol/L (136-145); Thyroid Stim Hormone (TSH) 1.95 uIU/mL (0.358-3.74)
== END | disposition home or self-care (01) ==
LOC: MTLAB 12:43
PROVIDERS: PCP Family Medicine; Referring Provider Family Medicine; Visit Provider Family Medicine
DX: N18.30 Chronic kidney disease, stage 3 unspecified (principal); E11.69 Type 2 diabetes mellitus with other specified complication; E11.22 Type 2 diabetes mellitus with diabetic chronic kidney disease
CPT/HCPCS: 36415; 80048; 84443

== ENCOUNTER → 2022-11-22 | Outpatient (CLI) | payer MEDICARE, SELFPAY ==
[2022-11-22 12:26] LABS: PTHIN 38.1 pg/mL (18.4-80.1)
[2022-11-22 12:34] LABS: Vitamin B12 521 pg/mL (211-911); Vitamin D,25 Hydroxy 51.2 ng/mL
[2022-11-22 12:45] LABS: ALB/GLOB Ratio 0.9 RATIO (0.9-2.4); AST(SGOT) 78 U/L (15-37); Alanine Aminotransfer ALT/SGPT 92 U/L (16-61); Albumin, Serum 3.9 g/dL (3.2-5.0); Alkaline Phosphatase 114 U/L (45-117); Anion Gap 7 (5-15); BUN 21 mg/dL (7-18); BUN/Creat Ratio 14.6 RATIO (10-20); Calcium,Total 8.9 mg/dL (8.5-10.1); Chloride 109 mmol/L (98-107); Cholesterol 142 mg/dL (200); Creatinine, Serum 1.44 mg/dL (0.70-1.30); EST Glomerular Filtration Rate 50 mL/min (>60); Est Glom Filt Rate - Afr Amer 61 mL/min (>60); Globulin 4.5 g/dL (2.2-4.2); Glucose 102 mg/dL (74-106); High Density Lipoprotein 34 mg/dL; Protein, Total 8.4 g/dL (6.4-8.2); Sodium Level 140 mmol/L (136-145); Triglycerides 388 mg/dL; Very Low Density Lipoprotein 78 mg/dL (5-40)
[2022-11-26 13:07] LABS: PROEL- Alpha-1 Globulin 0.2 g/dL (0.0-0.4); PROEL- Alpha-2 Globulin 1.1 g/dL (0.4-1.0); PROEL- Beta Globulin 1.3 g/dL (0.7-1.3); PROEL- Gamma Globulin 1.6 g/dL (0.4-1.8); PROEL- Globulin, Total 4.2 g/dL (2.2-3.9); PROEL- TOTAL PROTEIN 8.2 g/dL (6.0-8.5)
== END | disposition home or self-care (01) ==
LOC: MFPLAB 09:54
PROVIDERS: PCP Family Medicine; Visit Provider Family Medicine
DX: E11.22 Type 2 diabetes mellitus with diabetic chronic kidney disease (principal); E11.21 Type 2 diabetes mellitus with diabetic nephropathy; N18.30 Chronic kidney disease, stage 3 unspecified
CPT/HCPCS: 36415; 80053; 80061; 82306; 82607; 83970; 84165

== ENCOUNTER → 2023-05-20 | Outpatient (CLI) | payer MEDICARE, SELFPAY ==
[2023-05-20 12:41] LABS: Absolute Lymphocyte Count 1.15 X10^3/uL (0.83-4.51); Absolute Neutrophil Count 4.6 X10^3/uL (2.0-7.7); Basophil# 0.08 X10^3/uL; Basophil% 1.2 % (0-1); Eosinophil# 0.27 X10^3/uL; Eosinophils% 3.9 % (0-5); Hematocrit 47.1 % (40-54); Lymphocyte # 1.15 X10^3/ul (0.83-4.51); Lymphocyte % 16.7 % (19-41); Mean Corpuscular Hgb 31.1 pg (27.0-32.0); Mean Corpuscular Volume 91.5 fL (80-94); Mean Platelet Vol. 11.2 fl (6.2-12.0); Monocyte# 0.81 X10^3/uL; Monocyte% 11.7 % (0-10); NRBC Flagged by Analyzer 0 % (0-5); Neutrophil # 4.56 X10^3/uL (2.7-7.7); Neutrophil % 66.1 % (47-70); POSITIVE COUNT YES; Platelet Count 84 K/mm3 (150-450); RBC Distribution Width CV 13.2 % (11.6-14.6); Red Blood Count 5.15 M/mm3 (4.6-6.2); White Blood Count 6.9 K/mm3 (4.4-11.0)
[2023-05-20 13:14] LABS: ALB/GLOB Ratio 0.9 RATIO (0.9-2.4); AST(SGOT) 55 U/L (15-37); Alanine Aminotransfer ALT/SGPT 61 U/L (16-61); Albumin, Serum 3.8 g/dL (3.2-5.0); Alkaline Phosphatase 87 U/L (45-117); Anion Gap 8 (5-15); BUN 22 mg/dL (7-18); BUN/Creat Ratio 15.8 RATIO (10-20); Calcium,Total 8.9 mg/dL (8.5-10.1); Chloride 108 mmol/L (98-107); Cholesterol 149 mg/dL (200); Creatinine, Serum 1.39 mg/dL (0.70-1.30); EST Glomerular Filtration Rate 52 mL/min (>60); Est Glom Filt Rate - Afr Amer 63 mL/min (>60); Globulin 4.2 g/dL (2.2-4.2); Glucose 58 mg/dL (74-106); High Density Lipoprotein 36 mg/dL; Potassium 3.8 mmol/L (3.5-5.1); Sodium Level 140 mmol/L (136-145); Triglycerides 343 mg/dL; Very Low Density Lipoprotein 69 mg/dL (5-40)
== END | disposition home or self-care (01) ==
LOC: MFPLAB 09:56
PROVIDERS: PCP Family Medicine; Visit Provider Family Medicine
DX: E11.22 Type 2 diabetes mellitus with diabetic chronic kidney disease (principal); N18.30 Chronic kidney disease, stage 3 unspecified
CPT/HCPCS: 36415; 80053; 80061; 85025

== ENCOUNTER → 2023-12-12 | Outpatient (CLI) | payer MEDICARE, SELFPAY ==
[2023-12-12 15:21] LABS: Hematocrit 48.3 % (40-54); Hemoglobin 15.8 g/dL (13.0-16.5); Mean Corp Hgb Conc 32.7 g/dL (32-36); Mean Corpuscular Volume 94.9 fL (80-94); Mean Platelet Vol. 11.3 fl (6.2-12.0); POSITIVE COUNT YES; Platelet Count 88 K/mm3 (150-450); RBC Distribution Width CV 13.2 % (11.6-14.6); Red Blood Count 5.09 M/mm3 (4.6-6.2); White Blood Count 7.3 K/mm3 (4.4-11.0)
[2023-12-12 15:23] LABS: Scan Indicated on CBC? Y/N NO
[2023-12-12 15:53] LABS: ALB/GLOB Ratio 0.8 RATIO (0.9-2.4); AST(SGOT) 61 U/L (15-37); Alanine Aminotransfer ALT/SGPT 65 U/L (16-61); Albumin, Serum 3.9 g/dL (3.2-5.0); Alkaline Phosphatase 107 U/L (45-117); Anion Gap 5 (5-15); BUN 28 mg/dL (7-18); BUN/Creat Ratio 19.4 RATIO (10-20); Chloride 111 mmol/L (98-107); Cholesterol 162 mg/dL (200); Creatinine, Serum 1.44 mg/dL (0.70-1.30); EST Glomerular Filtration Rate 50 mL/min (>60); Est Glom Filt Rate - Afr Amer 60 mL/min (>60); Globulin 4.6 g/dL (2.2-4.2); Glucose 66 mg/dL (74-106); High Density Lipoprotein 35 mg/dL; Iron 95 ug/dL (65-175); Protein, Total 8.5 g/dL (6.4-8.2); Sodium Level 141 mmol/L (136-145); Triglycerides 503 mg/dL
[2023-12-13 11:04] LABS: PTHIN 33.1 pg/mL (18.4-80.1)
[2023-12-13 11:16] LABS: Vitamin B12 459 pg/mL (211-911); Vitamin D,25 Hydroxy 38.3 ng/mL
== END | disposition home or self-care (01) ==
LOC: MFPLAB 12:22
PROVIDERS: PCP Family Medicine; Visit Provider Family Medicine
DX: E11.22 Type 2 diabetes mellitus with diabetic chronic kidney disease (principal); N18.30 Chronic kidney disease, stage 3 unspecified
CPT/HCPCS: 36415; 80053; 80061; 82306; 82607; 83540; 83970; 84443; 85027

== ENCOUNTER → 2024-06-15 | Outpatient (CLI) | payer MEDICARE, SELFPAY ==
[2024-06-15 11:43] LABS: Microalbumin,Random Urine 15.2 mg/L (NO RANGE EST.); Microalbumin:Creatinine Ratio 159.8 mg/g CRE
[2024-06-15 11:46] LABS: Anion Gap 13 (5-15); BUN 26 mg/dL (4-19); BUN/Creat Ratio 16.8 RATIO (10-20); Calcium,Total 9.4 mg/dL (7.6-11.0); Carbon Dioxide 21.3 mmol/L (21.0-32.0); Chloride 105 mmol/L (98-108); Cholesterol 167 mg/dL (<=200); Creatinine, Serum 1.53 mg/dL (0.70-1.20); EST Glomerular Filtration Rate 45 (>60); Glucose 134 mg/dL (70-99); High Density Lipoprotein 31 mg/dL; Low Density Lipoprotein Calc. 46 mg/dL; Sodium Level 139 mmol/L (133-145); Triglycerides 450 mg/dL; Very Low Density Lipoprotein 90 mg/dL (5-40); cholesterol:hdl ratio screen 5.46
== END | disposition home or self-care (01) ==
LOC: MFPLAB 08:17
PROVIDERS: PCP Family Medicine; Referring Provider Family Medicine; Visit Provider Family Medicine
DX: E11.22 Type 2 diabetes mellitus with diabetic chronic kidney disease (principal); E11.69 Type 2 diabetes mellitus with other specified complication; N18.30 Chronic kidney disease, stage 3 unspecified
CPT/HCPCS: 36415; 80048; 80061; 82043; 82570

== ENCOUNTER → 2024-12-22 | Outpatient (CLI) | payer MEDICARE, SELFPAY ==
[2024-12-22 13:00] LABS: Creatinine, Urine (random) 81.30 mg/dL (39.00-259.00); Microalbumin,Random Urine 27.5 mg/L (<20 mg/L)
[2024-12-22 13:05] LABS: Cholesterol 160 mg/dL (<=200); Glucose 82 mg/dL (70-99); Low Density Lipoprotein Calc. 53 mg/dL; Triglycerides 533 mg/dL; Very Low Density Lipoprotein 107 mg/dL (5-40); cholesterol:hdl ratio screen 5.61
== END | disposition home or self-care (01) ==
LOC: MFPLAB 10:21
PROVIDERS: PCP Family Medicine; Visit Provider Family Medicine
DX: E11.8 Type 2 diabetes mellitus with unspecified complications (principal); Z00.00 Encounter for general adult medical examination without abnormal findings
CPT/HCPCS: 36415; 80061; 82043; 82570; 82947